=== PATIENT | female | born 1970 | race Caucasian/White ===

== ENCOUNTER 2020-02-14 02:35 | Observation (INO) | payer OTHER ==
[2020-02-14] MEDS ORDERED: HYDROmorphone 0.5 MG/0.5 ML SYRINGE IVP STA ×2 (04:21→05:40)
[2020-02-14 04:56] LABS: Basophils # (A) 0.1 k/uL (0-0.2); Basophils % (A) 1 %; Eosinophils # (A) 0.2 k/uL (0-0.7); Eosinophils % (A) 3 %; HCT 42.2 % (34.0-46.0); HGB 13.7 gm/dL (11.4-16.0); Lymphocytes % (A) 32 %; MCHC 32.6 g/dL (31.0-37.0); Mean Platelet Volume 9.2; Monocytes # (A) 0.5 k/uL (0-1.0); Monocytes % (A) 8 %; Neutrophils # (A) 3.5 k/uL (1.3-7.7); Neutrophils % (A) 54 %; Platelet Count 183 k/uL (150-450); RBC 4.91 m/uL (3.80-5.40); RDW 13.7 % (11.5-15.5); WBC 6.4 k/uL (3.8-10.6)
[2020-02-14 05:13] LABS: ALT 12 U/L (4-34); AST 18 U/L (14-36); African American GFR (CKD) >90 (>60 ml/min/1.73 sqM); Albumin 4.1 g/dL (3.5-5.0); Alkaline Phosphatase 85 U/L (38-126); Anion Gap 6 mmol/L; Blood Urea Nitrogen 12 mg/dL (7-17); Calcium 9.3 mg/dL (8.4-10.2); Carbon Dioxide 26 mmol/L (22-30); Chloride 108 mmol/L (98-107); Glucose 96 mg/dL (74-99); Non-African American GFR(CKD) >90 (>60 ml/min/1.73 sqM); Potassium 3.9 mmol/L (3.5-5.1); Sodium 140 mmol/L (137-145); Total Bilirubin 0.5 mg/dL (0.2-1.3); Total Protein 6.6 g/dL (6.3-8.2)
--- NOTE | 2020-02-14 05:23 | CT ---
EXAMINATION TYPE: CT lumbar spine w con DATE OF EXAM: 02/14/2020 COMPARISON: None HISTORY: Lower back pain CT DLP: 1888.6 mGycm Automated exposure control for dose reduction was used. CONTRAST: Performed with IV Contrast, patient injected with 100 mL of Isovue 300. The lumbar vertebra have normal spacing and alignment. Posterior elements are intact. Facet joints ap pear normal. Abdominal aorta is atheromatous. There is no lumbar paraspinal mass. There is no lynette lashanda fracture. The sacroiliac joints appear intact. Sacrum and coccyx appear normal. There are bilateral enlarged multiple inguinal lymph nodes. The largest is on the right side and kajal ures 5 cm in greatest dimension. There is asymmetric size of the obturator internus muscles which could relate to Infiltrative process or hemorrhage of the right side muscle. There is no pathologic enhancement in the lumbar spine. IMPRESSION: Normal lumbar spine exam. Extensive bilateral inguinal lymphadenopathy. There appears to be a mass involving the right obturator internus muscle which could relate to tumor or hemorrhage.
[2020-02-14] MEDS ORDERED: methylPREDNISolone SOD SUCCI 125 MG/2 ML VIAL IV STA (05:40)
[2020-02-14] MEDS ORDERED: NALOXONE 0.4 MG/ML 1 ML VIAL IV PRN (05:43)
[2020-02-14] MEDS ORDERED: MAG HYDROX/AL HYDROX/SIMETH 30 ML CUP PO PRN (05:43)
[2020-02-14] MEDS ORDERED: ACETAMINOPHEN TAB 325 MG TAB PO PRN (05:43)
[2020-02-14] MEDS ORDERED: MAGNESIUM HYDROXIDE 2,400 MG/10 ML CUP PO PRN (05:43)
[2020-02-14] MEDS ORDERED: HYDROcodone/APAP 5-325MG 1 EACH TAB PO PRN (05:43)
--- NOTE | 2020-02-14 05:58 | ED ---
Back Pain HPI - General Chief Complaint: Back Pain/Injury Stated Complaint: Rt leg pain, lump in groin Time Seen by Provider: 02/14/20 04:04 Source: patient Limitations: no limitations - History of Present Illness Initial Comments: This patient is a 50-year-old woman who presents with complaint of pain from the low back on the right side radiating to her buttocks, thigh and down toward her right foot. The patient states that this pain had been going on for number weeks and has been getting progressively worse. She states that tonight the pain is become unbearable, she cannot find a comfortable position a longer and she cannot sleep. Initially pain was made worse with sitting upright on it. She states that she did have some leftover [place] that she tried and this was not giving any relief. The patient denies any change in bladder or bowel function. No saddle anesthesia. She does not recall any trauma. The patient does relate she has history of lymphoma and has noticed that she has had increase in the lymph nodes of the groin bilaterally and also the right neck. MD Complaint: back pain -: week(s) Similar Symptoms Previously: No Place: home Radiation: buttocks, right leg Severity: severe Quality: burning, aching Consistency: constant Improves With: none Worsens With: sitting upright Associated Symptoms: denies other symptoms - Related Data Allergies Allergy/AdvReac Type Severity Reaction Status Date / Time No Known Allergies Allergy Verified 02/14/20 02:52 Review of Systems ROS Statement: Those systems with pertinent positive or pertinent negative responses have been documented in the HPI. ROS Other: All systems not noted in ROS Statement are negative. Constitutional: Denies: fever, chills, weakness Respiratory: Denies: cough, dyspnea Cardiovascular: Denies: chest pain, palpitations, edema, syncope Gastrointestinal: Denies: abdominal pain, vomiting, diarrhea Genitourinary: Denies: dysuria, frequency, hematuria Musculoskeletal: Reports: as per HPI, back pain. Denies: joint swelling, arthralgia Skin: Denies: rash Neurological: Denies: headache, weakness, numbness Past Medical History Additional Past Medical History / Comment(s): Thyroid Cancer, Collapsed lung History of Any Multi-Drug Resistant Organisms: None Reported Additional Past Surgical History / Comment(s): Breast Implants, Thyroidectomy Past Psychological History: No Psychological Hx Reported Smoking Status: Current every day smoker Past Alcohol Use History: None Reported Past Drug Use History: Marijuana General Exam Limitations: no limitations General appearance: alert, in no apparent distress Head exam: Present: atraumatic, normocephalic Eye exam: Present: normal appearance. Absent: scleral icterus, conjunctival injection Respiratory exam: Present: normal lung sounds bilaterally. Absent: respiratory distress, wheezes, rales, rhonchi, stridor Cardiovascular Exam: Present: regular rate, normal rhythm, normal heart sounds. Absent: systolic murmur, diastolic murmur, rubs, gallop GI/Abdominal exam: Present: soft, other (There are bilateral inguinal nodes.). Absent: distended, tenderness, guarding, rebound Extremities exam: Present: normal capillary refill. Absent: pedal edema, calf tenderness Back exam: Present: normal inspection. Absent: CVA tenderness (R), CVA tenderness (L) Neurological exam: Present: alert. Absent: motor sensory deficit Skin exam: Present: warm, dry, intact, normal color. Absent: rash Course Vital Signs 02/14/20 02/14/20 02:42 05:00 Temperature 97.9 F 98.0 F Pulse Rate 81 58 L Respiratory 16 18 Rate Blood Pressure 145/79 145/81 O2 Sat by Pulse 98 98 Oximetry Medical Decision Making - Medical Decision Making This patient is a 50-year-old woman with history of lymphoma. She did have initial surgery related to a right neck mass, but no adjuvant therapy. She states that she lost confidence in the initial oncology team and then also with the cancer treatment center that she had followed with. Over the past few weeks she has developed symptoms consistent with sciatic pain into the right leg. Imaging is ordered given her malignancy history and there is what appears to be either hemorrhage or infiltration of the right obturator internus. Given this will admit for additional symptom control and also for oncology consultation - Lab Data Result diagrams: 02/14/20 04:41 02/14/20 04:41 Lab Results 02/14/20 02/14/20 Range/Units 04:41 04:41 WBC 6.4 (3.8-10.6) k/uL RBC 4.91 (3.80-5.40) m/uL Hgb 13.7 (11.4-16.0) gm/dL Hct 42.2 (34.0-46.0) % MCV 86.0 (80.0-100.0) fL MCH 28.0 (25.0-35.0) pg MCHC 32.6 (31.0-37.0) g/dL RDW 13.7 (11.5-15.5) % Plt Count 183 (150-450) k/uL Neutrophils % 54 % Lymphocytes % 32 % Monocytes % 8 % Eosinophils % 3 % Basophils % 1 % Neutrophils # 3.5 (1.3-7.7) k/uL Lymphocytes # 2.0 (1.0-4.8) k/uL Monocytes # 0.5 (0-1.0) k/uL Eosinophils # 0.2 (0-0.7) k/uL Basophils # 0.1 (0-0.2) k/uL Sodium 140 (137-145) mmol/L Potassium 3.9 (3.5-5.1) mmol/L Chloride 108 H (98-107) mmol/L Carbon Dioxide 26 (22-30) mmol/L Anion Gap 6 mmol/L BUN 12 (7-17) mg/dL Creatinine 0.74 (0.52-1.04) mg/dL Est GFR (CKD-EPI)AfAm >90 (>60 ml/min/1.73 sqM) Est GFR (CKD-EPI)NonAf >90 (>60 ml/min/1.73 sqM) Glucose 96 (74-99) mg/dL Calcium 9.3 (8.4-10.2) mg/dL Total Bilirubin 0.5 (0.2-1.3) mg/dL AST 18 (14-36) U/L ALT 12 (4-34) U/L Alkaline Phosphatase 85 (38-126) U/L Total Protein 6.6 (6.3-8.2) g/dL Albumin 4.1 (3.5-5.0) g/dL Disposition Clinical Impression: Sciatica, Intractable back pain, Lymphoma Narrative: Right obturator internus hemorrhage versus mass Disposition: ADMITTED IP TO THIS HOSP Condition: Fair Is patient prescribed a controlled substance at d/c from ED?: No
[2020-02-14] MEDS: SODIUM CHLORIDE 0.9% 1,000 ML IV SCH (06:07)
[2020-02-14] MEDS: HYDROmorphone 1 MG/ML 1 ML SYRINGE IVP PRN ×4 (07:48→22:15)
[2020-02-14] MEDS: FAMOTIDINE 20 MG TAB PO SCH ×2 (07:48→21:38)
[2020-02-14] MEDS ORDERED: IOPAMIDOL CONTRAST (ORAL USE) VIAL PO PRN (11:03)
--- NOTE | 2020-02-14 11:18 | P.CONS ---
History of Present Illness - Reason for Consult Consult date: 02/14/20 Metastatic cancer likely thyroid - History of Present Illness The patient is a 50-year-old white female with a complicated past oncologic history. She states that in the fall of 2015 she was diagnosed with thyroid cancer and had total thyroidectomy with lymph node dissection at [facility] with Dr. Amador. According to the patient's multiple lymph nodes were involved. She does not recall the exact type of thyroid cancer but states that she was told that it was the "good one". The patient states that she had several complications after surgery, including weakness of the right sternomastoid and loss of sensation in that area, as well as marked fatigue with slow recovery. It appears that she received radioactive iodine several months later, in 2019. The patient states that about 6 months after that she was told that it looked like there was a lymph node enlargement in the mediastinum. At this time she was frustrated with her situation and decided to transfer her care to the cancer treatment centers [facility] in [place]. She states that she was therefore several days and was supposed to have a lymph node biopsy but that was canceled on the day of surgery because of some technical issues. He states that at this time she became quite frustrated and decided not to pursue any cancer care. She did continue thyroid supplementation with her family care physician. About 6 months ago she noted a hard nodule in the right lower neck which is otherwise asymptomatic. She did not seek attention for the same. However about 1-1/2 months ago she developed a softball size swelling in the right groin, and also noted another nodule in the right submental region. The right groin swelling was more painful but then spontaneously improved. She again did not seek attention for the same. About a week and half ago she developed pain in the right lower buttock area radiating down the right leg. Around this time she noted swelling again in the right groin, as well as a smaller lump in the left groin. The pain in the right buttock area continued to progress and become significantly symptomatic. She states that this was markedly increased by sitting down or trying to bear weight. She therefore came into the emergency room and was admitted for further management. The patient had a lumbar spine CT that did not show any significant abnormality in the osseous structures. However a 5 cm mass was seen in the pelvis impacting on the obturator internus muscle. Consult was placed for further evaluation and recommendations Review of Systems Constitutional: Reports fatigue Eyes: denies blurred vision, denies pain Ears: deny: decreased hearing, ear discharge, earache, tinnitus Ears, nose, mouth and throat: Reports as per HPI (Weakness right sternomastoid as well as loss of sensation in the right lower neck and right supraclavicular area), Reports neck lump Cardiovascular: Denies chest pain, Denies shortness of breath Respiratory: Denies cough Gastrointestinal: Denies abdominal pain, Denies diarrhea, Denies nausea, Denies vomiting Genitourinary: Denies dysuria, Denies hematuria Musculoskeletal: Reports muscle weakness, Reports neck stiffness, Denies myalgias Musculoskeletal: right: hip pain Integumentary: Denies pruritus, Denies rash Neurological: Reports paresthesias, Denies numbness, Denies weakness Psychiatric: Reports as per HPI Endocrine: Reports as per HPI, Reports fatigue, Reports weight change Hematologic/Lymphatic: Reports as per HPI, Reports lymphadenopathy Past Medical History Additional Past Medical History / Comment(s): Thyroid Cancer, Collapsed lung History of Any Multi-Drug Resistant Organisms: None Reported Additional Past Surgical History / Comment(s): Breast Implants, Thyroidectomy Past Psychological History: No Psychological Hx Reported Smoking Status: Current every day smoker Past Alcohol Use History: None Reported Past Drug Use History: Marijuana Medications and Allergies Home Medications Medication Instructions Recorded Confirmed Type ALPRAZolam [Xanax] 1 mg PO TID PRN 02/14/20 02/14/20 History Dextroamphetamine/Amphetamine 30 mg PO BID 02/14/20 02/14/20 History [Adderall] Ibuprofen [Motrin] 800 mg PO BID PRN 02/14/20 02/14/20 History Levothyroxine Sodium [Synthroid] 175 mcg PO DAILY 02/14/20 02/14/20 History Multivitamins, Thera [Multivitamin 1 tab PO DAILY 02/14/20 02/14/20 History (formulary)] Omeprazole 20 mg PO DAILY 02/14/20 02/14/20 History Vit C/E/Zn/Coppr/Lutein/Zeaxan 1 cap PO DAILY 02/14/20 02/14/20 History [Preservision Areds 2 Softgel] tiZANidine [Zanaflex] 4 mg PO BID PRN 02/14/20 02/14/20 History Allergies Allergy/AdvReac Type Severity Reaction Status Date / Time No Known Allergies Allergy Verified 02/14/20 08:52 Physical Exam Vitals: Vital Signs Temp Pulse Pulse Resp BP BP BP 02/14/20 07:50 98.5 F 73 131/64 02/14/20 06:48 52 L 17 02/14/20 06:00 98.3 F 78 16 135/70 02/14/20 05:53 98 F 52 L 18 131/76 02/14/20 05:00 98.0 F 58 L 18 145/81 02/14/20 02:42 97.9 F 81 16 145/79 Pulse Ox 02/14/20 07:50 97 02/14/20 06:48 02/14/20 06:00 97 02/14/20 05:53 100 02/14/20 05:00 98 02/14/20 02:42 98 Intake and Output 02/13/20 02/14/20 02/14/20 22:59 06:59 14:59 Intake Total 20 Balance 20 Intake: Intake, IV Titration 20 Amount Sodium Chloride 0.9% 1, 20 000 ml @ 20 mls/hr IV . Q24H [facility] Rx#:[id number] Other: Voiding Method Toilet Toilet # Voids 1 Weight 80.195 kg - Constitutional General appearance: no acute distress - EENT Eyes: EOMI, PERRLA ENT: hearing grossly normal, normal oropharynx - Neck Neck: no lymphadenopathy (1 cm firm right lower cervical node, with an adjacent 2-3 smaller shotty nodes. 7-8 mm right submental node) Thyroid: negative: normal size (Scar of thyroidectomy noted) - Respiratory Respiratory: bilateral: CTA - Cardiovascular Rhythm: regular Heart sounds: normal: S1, S2 - Gastrointestinal General gastrointestinal: normal bowel sounds, soft - Integumentary Integumentary: normal - Neurologic Neurologic: focal deficits (Weakness right sternomastoid) - Musculoskeletal Musculoskeletal: generalized weakness, strength equal bilaterally - Psychiatric Psychiatric: A&O x's 3, appropriate affect Right inguinal mass about 2-3 cm, firm and fixed. 2 cm left inguinal mass slightly softer, also fixed Results CBC & Chem 7: 02/14/20 04:41 02/14/20 04:41 Labs: Abnormal Lab Results - Last 24 Hours (Table) 02/14/20 Range/Units 04:41 Chloride 108 H (98-107) mmol/L Comments: CT lumbar spine reviewed Assessment and Plan (1) Thyroid cancer Narrative/Plan: The patient has a prior history of thyroid cancer with narrative as noted in the HPI. Original pathology reports are not available as to be able to determine the exact type. The patient appears to have had a history of recurrent disease but did not pursue further diagnostics and treatment after 2018. She now appears to be having progressive lymphadenopathy in the cervical and inguinal regions, as well as a mass noted in the posterior pelvis. Given her prior history recurrence of progression appears to be most likely, of her thyroid cancer. However other primaries are not ruled out. - The above was discussed in detail with her. The patient will need a biopsy to establish diagnosis, as well as for biomarker testing as appropriate - Check CT chest abdomen and pelvis for further staging - Consult general surgery for inguinal node biopsy - Thyroglobulin levels will be ordered - We will also attempt to obtain pathology and other reports from [facility] Current Visit: Yes Status: Acute Code(s): C73 - MALIGNANT NEOPLASM OF THYROID GLAND SNOMED Code(s): 143435823 (2) Intractable back pain Narrative/Plan: The patient's pain is actually most prominent in the right lower buttock area radiating down the right leg. This is due to the 5 cm plus mass noted impacting on the obturator internus muscle most likely. The patient was started on gabapentin. She is currently on IV Dilaudid. Continue to monitor with additional changes as needed - Consult radiation oncology for consideration of palliative radiation to the right pelvic mass - Add fentanyl low-dose for long-acting pain control Current Visit: Yes Status: Acute Code(s): M54.9 - DORSALGIA, UNSPECIFIED SNOMED Code(s): 959387844
[2020-02-14] MEDS: GABAPENTIN 100 MG CAP PO SCH ×2 (11:22→21:39)
[2020-02-14] MEDS ORDERED: ALPRAZolam 1 MG TAB PO PRN (13:23)
[2020-02-14] MEDS ORDERED: tiZANidine 4 MG TAB PO PRN (13:23)
--- NOTE | 2020-02-14 15:03 | P.HPIM ---
History of Present Illness H&P Date: 02/14/20 Chief Complaint: Back pain/right leg pain/lumbar in groin 50-year-old woman who presents with complaint of pain from the low back on the right side radiating to her buttocks, thigh and down toward her right foot. The patient states that this pain had been going on for number weeks and has been getting progressively worse. She states that tonight the pain is become unbeara ble, she cannot find a comfortable position a longer and she cannot sleep. Initially pain was made worse with sitting upright on it. She states that she did have some leftover [place] that she tried and this was not giving any relief. The patient denies any change in bladder or bowel function. No saddle anesthesia. She does not recall any trauma. The patient does relate she has history of lymphoma and has noticed that she has had increase in the lymph nodes of the groin bilaterally and also the right neck. Patient has history of lymphoma. She did have initial surgery related to a right neck mass, but no adjuvant therapy. She states that she lost confidence in the initial oncology team and then also with the cancer treatment center that she had followed with. Over the past few weeks she has developed symptoms consistent with sciatic pain into the right leg. CT was ordered given her malignancy history and there is what appears to be either hemorrhage or infiltration of the right obturator internus. Patient is admitted for additional symptom control and also for oncology consultation Review of Systems REVIEW OF SYSTEMS: CONSTITUTIONAL: No fever, no malaise, no fatigue. HEENT: No recent visual problems or hearing problems. Denied any sore throat. CARDIOVASCULAR: No chest pain, orthopnea, PND, no palpitations, no syncope. PULMONARY: No shortness of breath, no cough, no hemoptysis. GASTROINTESTINAL: No diarrhea, no nausea, no vomiting, no abdominal pain. NEUROLOGICAL: No headaches, no weakness, no numbness. HEMATOLOGICAL: Denies any bleeding or petechiae. GENITOURINARY: Denies any burning micturition, frequency, or urgency. MUSCULOSKELETAL/RHEUMATOLOGICAL: As per HPI. ENDOCRINE: Denies any polyuria or polydipsia. The rest of the 14-point review of systems is negative. Past Medical History Additional Past Medical History / Comment(s): Thyroid Cancer, Collapsed lung History of Any Multi-Drug Resistant Organisms: None Reported Additional Past Surgical History / Comment(s): Breast Implants, Thyroidectomy Past Psychological History: No Psychological Hx Reported Smoking Status: Current every day smoker Past Alcohol Use History: None Reported Past Drug Use History: Marijuana Medications and Allergies Home Medications Medication Instructions Recorded Confirmed Type ALPRAZolam [Xanax] 1 mg PO TID PRN 02/14/20 02/14/20 History Dextroamphetamine/Amphetamine 30 mg PO BID 02/14/20 02/14/20 History [Adderall] Ibuprofen [Motrin] 800 mg PO BID PRN 02/14/20 02/14/20 History Levothyroxine Sodium [Synthroid] 175 mcg PO DAILY 02/14/20 02/14/20 History Multivitamins, Thera [Multivitamin 1 tab PO DAILY 02/14/20 02/14/20 History (formulary)] Omeprazole 20 mg PO DAILY 02/14/20 02/14/20 History Vit C/E/Zn/Coppr/Lutein/Zeaxan 1 cap PO DAILY 02/14/20 02/14/20 History [Preservision Areds 2 Softgel] tiZANidine [Zanaflex] 4 mg PO BID PRN 02/14/20 02/14/20 History Allergies Allergy/AdvReac Type Severity Reaction Status Date / Time No Known Allergies Allergy Verified 02/14/20 08:52 Physical Exam Vitals: Vital Signs Temp Pulse Pulse Resp BP BP BP 02/14/20 07:50 98.5 F 73 131/64 02/14/20 06:48 52 L 17 02/14/20 06:00 98.3 F 78 16 135/70 02/14/20 05:53 98 F 52 L 18 131/76 02/14/20 05:00 98.0 F 58 L 18 145/81 02/14/20 02:42 97.9 F 81 16 145/79 Pulse Ox 02/14/20 07:50 97 02/14/20 06:48 02/14/20 06:00 97 02/14/20 05:53 100 02/14/20 05:00 98 02/14/20 02:42 98 Intake and Output 02/13/20 02/14/20 02/14/20 22:59 06:59 14:59 Intake Total 20 Balance 20 Intake: Intake, IV Titration 20 Amount Sodium Chloride 0.9% 1, 20 000 ml @ 20 mls/hr IV . Q24H [facility] Rx#:[id number] Other: Voiding Method Toilet Toilet # Voids 1 Weight 80.195 kg General appearance: alert, in no apparent distress Head exam: Present: atraumatic, normocephalic Eye exam: Present: normal appearance. Absent: scleral icterus, conjunctival injection Respiratory exam: Present: normal lung sounds bilaterally. Absent: respiratory distress, wheezes, rales, rhonchi, stridor Cardiovascular Exam: Present: regular rate, normal rhythm, normal heart sounds. Absent: systolic murmur, diastolic murmur, rubs, gallop GI/Abdominal exam: Present: soft, other (There are bilateral inguinal nodes.). Absent: distended, tenderness, guarding, rebound Extremities exam: Present: normal capillary refill. Absent: pedal edema, calf tenderness Back exam: Present: normal inspection. Absent: CVA tenderness (R), CVA tenderness (L) Neurological exam: Present: alert. Absent: motor sensory deficit Skin exam: Present: warm, dry, intact, normal color. Absent: rash Results CBC & Chem 7: 02/14/20 04:41 02/14/20 04:41 Labs: Abnormal Lab Results - Last 24 Hours (Table) 02/14/20 Range/Units 04:41 Chloride 108 H (98-107) mmol/L Thrombosis Risk Factor Assmnt - Choose All That Apply Any of the Below Risk Factors Present?: Yes Each Factor Represents 1 point: Age 41-60 years, Obesity (BMI >25) Other Risk Factors: No Other congenital or acquired thrombophilia - If yes, enter type in comment: No Thrombosis Risk Factor Assessment Total Risk Factor Score: 2 Thrombosis Risk Factor Assessment Level: Low Risk Assessment and Plan Assessment: 1. Right obturator internus hemorrhage versus mass; patient seems to have progressive lymphadenopathy in cervical and inguinal region; oncology recommending CT of the chest abdomen and pelvis for further staging; consult general surgery for inguinal lymph node biopsy 2. Intractable back pain; secondary to mass infiltrating obturator internus muscle; pain medications that adjusted; patient remains on IV Dilaudid and gabapentin - Oncology recommending radiation oncology consultation for palliative radiation to right pelvic mass 3. Sciatica versus pain from infiltrating pelvic mass; pain control as indicated above 4. History of thyroid cancer; possible recurrence/progression of thyroid cancer; oncology recommending obtaining original pathology reports to be able to determine exact type of thyroid cancer DVT prophylaxis; SCDs/heparin CODE STATUS; full code
[2020-02-14] MEDS: HEPARIN SODIUM,PORCINE 5,000 UNIT/ML 1 ML VIAL SQ SCH (21:39)
[2020-02-14] MEDS: NON FORMULARY DRUG (Dextroamphetamine/Amphetamine [Adderall] 30 MG Tablet) PO SCH (21:40)
[2020-02-15] MEDS: SODIUM CHLORIDE 0.9% 1,000 ML IV SCH (04:36)
[2020-02-15] MEDS ORDERED: LEVOTHYROXINE SODIUM 100 MCG, LEVOTHYROXINE SODIUM 75 MCG PO SCH ×2 (06:30)
[2020-02-15] MEDS ORDERED: PANTOPRAZOLE 40 MG TABLET PO SCH (07:30)
[2020-02-15 07:55] VITALS: PULSE 75
[2020-02-15] MEDS: HYDROmorphone 1 MG/ML 1 ML SYRINGE IVP PRN (08:53)
[2020-02-15] MEDS: FAMOTIDINE 20 MG TAB PO SCH (08:54)
[2020-02-15] MEDS: HEPARIN SODIUM,PORCINE 5,000 UNIT/ML 1 ML VIAL SQ SCH (08:54)
[2020-02-15] MEDS: GABAPENTIN 100 MG CAP PO SCH (08:54)
[2020-02-15] MEDS: NON FORMULARY DRUG (Dextroamphetamine/Amphetamine [Adderall] 30 MG Tablet) PO SCH (08:54)
[2020-02-15] MEDS ORDERED: MULTIVITAMINS, THERA 1 EACH TAB PO SCH (09:00)
[2020-02-15] MEDS ORDERED: NON FORMULARY DRUG (Levothyroxine Sodium [Synthroid] 175 MCG Tablet) PO SCH (09:00)
[2020-02-15 09:30] LABS: African American GFR (CKD) >90 (>60 ml/min/1.73 sqM); Anion Gap 5 mmol/L; Blood Urea Nitrogen 17 mg/dL (7-17); Calcium 9.1 mg/dL (8.4-10.2); Carbon Dioxide 26 mmol/L (22-30); Chloride 109 mmol/L (98-107); Glucose 91 mg/dL (74-99); Non-African American GFR(CKD) >90 (>60 ml/min/1.73 sqM); Potassium 4.7 mmol/L (3.5-5.1); Sodium 140 mmol/L (137-145)
--- NOTE | 2020-02-15 11:59 | CT ---
EXAMINATION TYPE: CT ChestAbdPelvis w con DATE OF EXAM: 02/15/2020 COMPARISON: None HISTORY: Metastatic thryoid cancer CT DLP: 1211.8 mGycm CONTRAST: CT scan of the chest, abdomen and pelvis is performed with Oral Contrast and with IV Contrast, patien t injected with 100 ml mL of Isovue 300. CT Chest: LUNGS: The lungs are clear and free of infiltrate or atelectasis. No pulmonary nodule or mass is det ected. No pleural effusion or CT evidence of interstitial lung disease. Upper lobe emphysematous jonny nges identified. MEDIASTINUM: Thoracic aorta is of normal caliber. The heart is not enlarged. High right paratrachea l soft tissue mass identified measuring approximately 6.4 x 3.6 cm may reflect adenopathy. No additio nal mediastinal mass is identified at this time. HILAR STRUCTURES: No evidence for mass. No hilar adenopathy is appreciated. OTHER: There is a 1 cm left breast mass. Correlate with mammography and ultrasound. Post surgical jonny nges of total thyroidectomy. CONTRAST CT ABDOMEN AND PELVIS FINDINGS: LIVER/GB: No calcified gallstones. No space occupying hepatic lesion. Biliary tree is of normal ca liber. PANCREAS: No inflammation. No distinct mass. SPLEEN: No splenic enlargement. No lesion seen. ADRENALS: No nodule. No thickening. KIDNEYS/BLADDER: No hydronephrosis. No nephrolithiasis. No disctinct renal mass. BOWEL: Normal appendix. Normal bowel caliber. No inflammation. GENITAL ORGANS: No gross abnormality. LYMPH NODES: Bilateral inguinal adenopathy identified measuring approximately 4.4 cm on the right and 2.5 cm on the left with an additional lymph node measuring 1.7 cm. AORTA: No significant abnormality . OSSEOUS STRUCTURES: There is a mass in the region of the obturator internus musculature possible infi ltration into the right hemisacrum. Metastatic disease is not excluded. OTHER: No significant additional abnormality is seen. IMPRESSION: 1. Soft tissue mass right paratracheal region as well as bilateral inguinal adenopathy. 2.There is a mass in the region of the obturator internus musculature possible infiltration into the right hemisacrum. Metastatic disease is not excluded.
--- NOTE | 2020-02-15 12:14 | P.GSCN ---
History of Present Illness Consult date: 02/15/20 Reason for Consult: Inguinal adenopathy History of present illness: 50-year-old female diagnosed in 2016 with thyroid cancer. Pathologic type unknown. Patient later was found to have some mediastinal adenopathy. He sought treatment at the cancer treatment center in [place]. Following that patient decided not to pursue further care. Lately he has had pain right groin going down into the leg. He has felt a nodule in the right side of her neck for the last 6 months or so. Mild soreness at times there as well. Bilateral groin swelling as well. Recent CAT scan performed showing bilateral inguinal adenopathy, mediastinal adenopathy, masslike area involving the obturator foramen. We were consulted to evaluate for possible biopsy. Review of Systems The patient denies any acute changes in vision or hearing, no dysphagia or odynophagia, no chest pain or shortness of breath, no dysuria or hematuria, no headache, no runny nose, no rectal bleeding or melena, no unexplained weight loss Past Medical History Additional Past Medical History / Comment(s): Thyroid Cancer, Collapsed lung History of Any Multi-Drug Resistant Organisms: None Reported Additional Past Surgical History / Comment(s): Breast Implants, Thyroidectomy Past Psychological History: No Psychological Hx Reported Smoking Status: Current every day smoker Past Alcohol Use History: None Reported Past Drug Use History: Marijuana Medications and Allergies Home Medications Medication Instructions Recorded Confirmed Type ALPRAZolam [Xanax] 1 mg PO TID PRN 02/14/20 02/14/20 History Dextroamphetamine/Amphetamine 30 mg PO BID 02/14/20 02/14/20 History [Adderall] Ibuprofen [Motrin] 800 mg PO BID PRN 02/14/20 02/14/20 History Levothyroxine Sodium [Synthroid] 175 mcg PO DAILY 02/14/20 02/14/20 History Multivitamins, Thera [Multivitamin 1 tab PO DAILY 02/14/20 02/14/20 History (formulary)] Omeprazole 20 mg PO DAILY 02/14/20 02/14/20 History Vit C/E/Zn/Coppr/Lutein/Zeaxan 1 cap PO DAILY 02/14/20 02/14/20 History [Preservision Areds 2 Softgel] tiZANidine [Zanaflex] 4 mg PO BID PRN 02/14/20 02/14/20 History Allergies Allergy/AdvReac Type Severity Reaction Status Date / Time No Known Allergies Allergy Verified 02/14/20 08:52 Surgical - Exam Vital Signs Temp Pulse Resp BP Pulse Ox 97.9 F 81 16 145/79 98 02/14/20 02:42 02/14/20 02:42 02/14/20 02:42 02/14/20 02:42 02/14/20 02:42 Physical exam: General: Well-developed, well-nourished HEENT: Normocephalic, sclerae nonicteric, right cervical adenopathy Abdomen: Nontender, nondistended Extremities: No edema, bilateral inguinal adenopathy right greater than left Neuro: Alert and oriented Results - Labs 02/14/20 04:41 02/15/20 08:25 Abnormal Lab Results - Last 24 Hours (Table) 02/14/20 02/15/20 Range/Units 04:41 08:25 Chloride 109 H (98-107) mmol/L Thyroglobulin <0.20 L (1.60-59.90) ng/mL Diabetes panel 02/15/20 Range/Units 08:25 Sodium 140 (137-145) mmol/L Potassium 4.7 (3.5-5.1) mmol/L Chloride 109 H (98-107) mmol/L Carbon Dioxide 26 (22-30) mmol/L BUN 17 (7-17) mg/dL Creatinine 0.70 (0.52-1.04) mg/dL Glucose 91 (74-99) mg/dL Calcium 9.1 (8.4-10.2) mg/dL Calcium panel 02/15/20 Range/Units 08:25 Calcium 9.1 (8.4-10.2) mg/dL Pituitary panel 02/15/20 Range/Units 08:25 Sodium 140 (137-145) mmol/L Potassium 4.7 (3.5-5.1) mmol/L Chloride 109 H (98-107) mmol/L Carbon Dioxide 26 (22-30) mmol/L BUN 17 (7-17) mg/dL Creatinine 0.70 (0.52-1.04) mg/dL Glucose 91 (74-99) mg/dL Calcium 9.1 (8.4-10.2) mg/dL Adrenal panel 02/15/20 Range/Units 08:25 Sodium 140 (137-145) mmol/L Potassium 4.7 (3.5-5.1) mmol/L Chloride 109 H (98-107) mmol/L Carbon Dioxide 26 (22-30) mmol/L BUN 17 (7-17) mg/dL Creatinine 0.70 (0.52-1.04) mg/dL Glucose 91 (74-99) mg/dL Calcium 9.1 (8.4-10.2) mg/dL Assessment and Plan (1) Inguinal adenopathy Narrative/Plan: 50-year-old female with adenopathy. Recurrent thyroid cancer certainly most likely etiology at this time. Options of open versus percutaneous biopsy reviewed with the patient and also with Dr. Oliveira. We'll schedule for ultrasound-guided core biopsy right inguinal lymph node. Patient states she has not able to stay in the hospital longer in need to have this performed electively as an outpatient. We'll try to arrange. Current Visit: Yes Status: Acute Code(s): R59.0 - LOCALIZED ENLARGED LYMPH NODES SNOMED Code(s): 222151684
[2020-02-15 15:06] VITALS: BP 117/69; RESP 18; TEMP 98.2
--- NOTE | 2020-02-15 22:49 | P.PN ---
Subjective Progress Note Date: 02/15/20 Principal diagnosis: Concern for metastatic cancer Surgery was consulted for inguinal biopsy, large palpable. Would prefer tissue biopsy prior to discharge so no further delays as she has been non-compliant to this point in follow-up with outside hospital systems. Thyroglobulin level is less than 20 Objective - Vital Signs Vital signs: Vital Signs Temp 98 F 02/15/20 07:54 Pulse 75 02/15/20 09:00 Resp 16 02/15/20 09:00 BP 134/80 02/15/20 07:54 Pulse Ox 98 02/15/20 07:54 Intake & Output 02/14/20 02/15/20 02/15/20 18:59 06:59 18:59 Intake Total 944 640 Balance 944 640 Intake: Intake, IV Titration 320 Amount Sodium Chloride 0.9% 1, 320 000 ml @ 20 mls/hr IV . Q24H [facility] Rx#:[id number] Oral 944 320 Other: Voiding Method Toilet Toilet Toilet # Voids 2 1 1 - Exam - Constitutional General appearance: no acute distress - EENT Eyes: EOMI, PERRLA ENT: hearing grossly normal, normal oropharynx - Neck Neck: no lymphadenopathy (1 cm firm right lower cervical node, with an adjacent 2-3 smaller shotty nodes. 7-8 mm right submental node) Thyroid: negative: normal size (Scar of thyroidectomy noted) - Respiratory Respiratory: bilateral: CTA - Cardiovascular Rhythm: regular Heart sounds: normal: S1, S2 - Gastrointestinal General gastrointestinal: normal bowel sounds, soft - Integumentary Integumentary: normal - Neurologic Neurologic: focal deficits (Weakness right sternomastoid) - Musculoskeletal Musculoskeletal: generalized weakness, strength equal bilaterally - Psychiatric Psychiatric: A&O x's 3, appropriate affect Right inguinal mass about 2-3 cm, firm and fixed. 2 cm left inguinal mass slightly softer, also fixed - Labs CBC & Chem 7: 02/14/20 04:41 02/15/20 08:25 Labs: Abnormal Lab Results - Last 24 Hours (Table) 02/14/20 02/15/20 Range/Units 04:41 08:25 Chloride 109 H (98-107) mmol/L Thyroglobulin <0.20 L (1.60-59.90) ng/mL Assessment and Plan Plan: CT lumbar spine reviewed Assessment and Plan Thyroid cancer - Apparent Diagnosis in Thyroid Cancer in 2018 and underwent radioactive iodine. - Original pathology reports are not available as to be able to determine the exact type. - The patient appears to have had a history of recurrent disease but did not pursue further diagnostics and treatment after 2018. - Now presenting with progressive lymphadenopathy in the cervical and inguinal regions, as well as a mass noted in the posterior pelvis. - Given her prior history recurrence of progression appears to be most likely, of her thyroid cancer. However other primaries are not ruled out. - The above was discussed in detail with her. The patient will need a biopsy to establish diagnosis, as well as for biomarker testing as appropriate - CT scans reviewed and paratrachael nodule also found on imaging in addition to palpable areas stated above - Consult general surgery for inguinal node biopsy, if unable to obtain IR to please obtain prior to discharge - Thyroglobulin levels will be ordered - We will also attempt to obtain pathology and other reports from [facility] Intractable back pain The patient's pain is actually most prominent in the right lower buttock area radiating down the right leg. This is due to the 5 cm plus mass noted impacting on the obturator internus muscle most likely. The patient was started on gabapentin. - Consult radiation oncology for consideration of palliative radiation to the right pelvic mass - Add fentanyl low-dose for long-acting pain control - WOuld prefer tissue biopsy prior to discharge for no further delays in treatment with her history of non-compliance to follow-up. Will discuss firther with surgery and/or Interventional radiology
--- NOTE | 2020-02-16 10:23 | P.CONS ---
History of Present Illness - Reason for Consult Consult date: 02/15/20 right lower back pain - radiates down leg Requesting physician: Agus Oliveira - Chief Complaint right low back pain - History of Present Illness The patient is a 50-year-old female with a history of a stage I (pT1a, pN1b, M0) papillary thyroid carcinoma treated with thyroidectomy with lymph node dissection in February 2016. She reports that this treatment was followed with radioactive iodine therapy. Back in 2016, the patient was noted to have suspicious lymph nodes in the paratracheal and epicardial region of the thorax. The patient underwent biopsy of the epicardial lymph node which revealed an atypical lymphoid infiltrate. This was felt to be suspicious for lymphoma, but before definitive diagnosis was made the patient decided to discontinue workup. She was evaluated at the cancer treatment centers of [facility], and subsequently left their care as well. She recently developed right lower extremity pain and groin swelling presenting to the ER. The patient reports an approximate 6 weeks ago she noticed an acute episode of right groin swelling. This seemed to happen overnight, and she had difficulty with right hip range of motion secondary to the lesion. She states that this subsided after a few days. She could still feel the swelling however. Approx imately a week and half ago the patient developed significant right-sided sciatic pain. She reports this starting posterior to the right hip and radiating down the right lower extremity. On her current pain regimen the pain is 4 out of 10, but prior to her admission the pain was much higher. She underwent a CT scan of the lumbar spine on February 13 revealing enlarged bilateral inguinal adenopathy up to 5 cm on the right, as well as a soft tissue mass at the right obturator internus worrisome for tumor versus hemorrhage. She also underwent a CT of the chest abdomen and pelvis the following day which showed a 6.4 x 3.6 cm right paratracheal mass, a 1 cm left breast mass, bilateral inguinal adenopathy measuring 4.4 cm on the right and 2.5 cm on the left as well as a previously described obturator internus mass with possible infiltration into the hemisacrum. The patient reports that despite her imaging in 2016 being worrisome for additional disease, she has not followed up as recommended. She is unhappy with the care she received a [facility], and complains of difficulty with right neck range of motion and chronic numbness/tingling of the right shoulder. She reports persistent fatigue. She states that her primary care physician has been largely managing her thyroid replacement medications. Review of Systems Constitutional: Denies chills, Denies fever Eyes: denies blurred vision Ears: deny: tinnitus Ears, nose, mouth and throat: Reports neck lump Cardiovascular: Denies chest pain Respiratory: Denies congestion, Denies cough Gastrointestinal: Denies abdominal pain Genitourinary: Denies flank pain Musculoskeletal: Reports low back pain Integumentary: Denies rash Neurological: Denies ataxia, Denies confusion Psychiatric: Reports anxiety Endocrine: Reports fatigue Past Medical History Additional Past Medical History / Comment(s): Thyroid Cancer, Collapsed lung History of Any Multi-Drug Resistant Organisms: None Reported Additional Past Surgical History / Comment(s): Breast Implants, Thyroidectomy Past Psychological History: No Psychological Hx Reported Smoking Status: Current every day smoker Past Alcohol Use History: None Reported Past Drug Use History: Marijuana Medications and Allergies Home Medications Medication Instructions Recorded Confirmed Type ALPRAZolam [Xanax] 1 mg PO TID PRN 02/14/20 02/14/20 History Dextroamphetamine/Amphetamine 30 mg PO BID 02/14/20 02/14/20 History [Adderall] Ibuprofen [Motrin] 800 mg PO BID PRN 02/14/20 02/14/20 History Levothyroxine Sodium [Synthroid] 175 mcg PO DAILY 02/14/20 02/14/20 History Multivitamins, Thera [Multivitamin 1 tab PO DAILY 02/14/20 02/14/20 History (formulary)] Omeprazole 20 mg PO DAILY 02/14/20 02/14/20 History Vit C/E/Zn/Coppr/Lutein/Zeaxan 1 cap PO DAILY 02/14/20 02/14/20 History [Preservision Areds 2 Softgel] tiZANidine [Zanaflex] 4 mg PO BID PRN 02/14/20 02/14/20 History Gabapentin [Neurontin] 200 mg PO BID #20 cap 02/15/20 Rx HYDROcodone/APAP 5-325MG [[place] 1 each PO Q4HR PRN #18 tab 02/15/20 Rx 5-325] fentaNYL 12MCG/HR PATCH [Duragesic 1 patch TRANSDERM Q72H #3 patch 02/15/20 Rx 12MCG/HR] Allergies Allergy/AdvReac Type Severity Reaction Status Date / Time No Known Allergies Allergy Verified 02/14/20 08:52 Physical Exam Vitals: Vital Signs Temp Pulse Resp BP Pulse Ox 02/15/20 15:00 98.2 F 62 18 117/69 97 Intake and Output 02/15/20 02/16/20 02/16/20 22:59 06:59 14:59 Other: Voiding Method Toilet # Voids 1 - Constitutional General appearance: no acute distress - EENT Eyes: EOMI, PERRLA ENT: NA/AT - Neck Neck: lymphadenopathy (right neck shotty adenopathy noted on palpation) - Respiratory Respiratory: bilateral: CTA - Cardiovascular Rhythm: regular - Gastrointestinal General gastrointestinal: no distended, no tenderness - Integumentary Integumentary: no pale, no rash - Neurologic Neurologic: CNII-XII intact - Musculoskeletal Musculoskeletal: gait normal, strength equal bilaterally - Psychiatric Psychiatric: A&O x's 3, appropriate affect Results CBC & Chem 7: 02/14/20 04:41 02/15/20 08:25 CT scan - abdomen: report reviewed, image reviewed CT scan - chest: report reviewed, image reviewed CT scan - pelvis: report reviewed, image reviewed Assessment and Plan Assessment: The patient is a 50-year-old female with a history of a stage I (pT1a, pN1b, M0) papillary thyroid carcinoma treated with thyroidectomy with lymph node dissection in February 2016. She reports that this treatment was followed with radioactive iodine therapy. Back in 2016, the patient was noted to have suspicious lymph nodes in the paratracheal and epicardial region of the thorax. The patient underwent biopsy of the epicardial lymph node which revealed an atypical lymphoid infiltrate. This was felt to be suspicious for lymphoma, but before definitive diagnosis was made the patient decided to discontinue workup. She was evaluated at the cancer treatment centers of [place], and subsequently left their care as well. She recently developed right lower extremity pain and groin swelling presenting to the ER. Plan: 1. Right sciatic pain: As detailed above, the patient has a soft tissue mass involving the right obturator internus that likely is compressing some of the sacral nerves. This is most likely the cause of her pain, and is concerning for recurrent malignancy. I discussed with the patient that he may be reasonable to perform a course of palliative radiotherapy to this lesion, but that we would first need a biopsy showing recurrent disease. As stated above, the patient has not had biopsy proof of any systemic recurrence from her papillary thyroid cancer. The patient does not wish to wait in the hospital for biopsy, as she needs to go home to take her mother to dialysis. Her pain seems improved on her current regimen, and she'll be discharged with 3 days worth of pain medication. We will arrange outpatient follow-up, as well as medical oncology. 2. Papillary thyroid cancer: As detailed above, the patient had concern on imaging back in 2017 that she may have recurrent papillary thyroid cancer. She had 2 areas in the mediastinum that were felt worrisome. On updated imaging, the right paratracheal lesion is much larger. There is small adenopathy in the epicardial region, but this is much less worrisome for progression. She'll be arranged for outpatient biopsy of the right inguinal lymph node. Back in 2017, there was some concern regarding B-cell lymphoma, but I feel that it is unlikely this would've been asymptomatic for this time period. Time with Patient: Greater than 30
--- NOTE | 2020-02-16 10:41 | P.DS ---
Providers Date of admission: 02/14/20 05:45 Expected date of discharge: 02/15/20 Attending physician: Darren Easton Consults: 02/14/20 05:44 Consult Physician Routine Consulting Provider: Agus Oliveira Consult Reason/Comments: Lymphoma patient Do you want consulting provider notified?: Yes 02/14/20 11:04 Consult Physician Routine Consulting Provider: Xavi Rojas Consult Reason/Comments: Rt inguinal L node biopsy Do you want consulting provider notified?: Yes 02/14/20 11:19 Consult Physician Routine Consulting Provider: Pedro Curtis Consult Reason/Comments: Evaluate for palliative radiation to right pelvic mass Do you want consulting provider notified?: Yes Primary care physician: Stated None Hospital Course: 50-year-old woman who presents with complaint of pain from the low back on the right side radiating to her buttocks, thigh and down toward her right foot. The patient states that this pain had been going on for number weeks and has been getting progressively worse. She states that tonight the pain is become unbearable, she cannot find a comfortable position a longer and she cannot sleep. Initially pain was made worse with sitting upright on it. She states that she did have some leftover [place] that she tried and this was not giving any relief. The patient denies any change in bladder or bowel function. No saddle anesthesia. She does not recall any trauma. The patient does relate she has history of lymphoma and has noticed that she has had increase in the lymph nodes of the groin bilaterally and also the right neck. Patient has history of lymphoma. She did have initial surgery related to a right neck mass, but no adjuvant therapy. She states that she lost confidence in the initial oncology team and then also with the cancer treatment center that she had followed with. Over the past few weeks she has developed symptoms consistent with sciatic pain into the right leg. CT was ordered given her malignancy history and there is what appears to be either hemorrhage or infiltration of the right obturator internus. Patient is admitted for additional symptom control and also for oncology consultation 02/15/2020 Patient's pain is better controlled on present regimen patient will be discharged on same regimen patient doesn't have a PCP patient will be referred to PCP a as an outpatient patient the appears to have significant lymphadenopathy appears to be from her thyroid cancer and patient will undergo biopsy of for one of the lymph nodes as an outpatient which will be taken care of by the oncologist. PHYSICAL EXAMINATION: GENERAL: The patient is alert and oriented x3, not in any acute distress. Well developed, well nourished. HEENT: Pupils are round and equally reacting to light. EOMI. No scleral icterus. No conjunctival pallor. Normocephalic, atraumatic. No pharyngeal erythema. No thyromegaly. CARDIOVASCULAR: S1 and S2 present. No murmurs, rubs, or gallops. PULMONARY: Chest is clear to auscultation, no wheezing or crackles. ABDOMEN: Soft, nontender, nondistended, normoactive bowel sounds. No palpable organomegaly. MUSCULOSKELETAL: No joint swelling or deformity. EXTREMITIES: No cyanosis, clubbing, or pedal edema. NEUROLOGICAL: Gross neurological examination did not reveal any focal deficits. SKIN: No rashes. - Back pain and a mass in the right obturator internus secondary to lymphaden opathy from cancer. Further management as mentioned above for rest of the medical problems and hospice physician course please refer to HPI from Patient Condition at Discharge: Fair Plan - Discharge Summary Discharge Rx Participant: No New Discharge Prescriptions: New fentaNYL 12MCG/HR PATCH [Durages[place] 12MCG/HR] 1 patch TRANSDERM Q72H #3 patch Gabapentin [Neurontin] 200 mg PO BID #20 cap HYDROcodone/APAP 5-325MG [[place] 5-325] 1 each PO Q4HR PRN #18 tab PRN Reason: Moderate Pain Continue Levothyroxine Sodium [Synthroid] 175 mcg PO DAILY tiZANidine [Zanaflex] 4 mg PO BID PRN PRN Reason: Pain Multivitamins, Thera [Multivitamin (formulary)] 1 tab PO DAILY Omeprazole 20 mg PO DAILY Ibuprofen [Motrin] 800 mg PO BID PRN PRN Reason: Pain Dextroamphetamine/Amphetamine [Adderall] 30 mg PO BID ALPRAZolam [Xanax] 1 mg PO TID PRN PRN Reason: Anxiety Vit C/E/Zn/Coppr/Lutein/Zeaxan [Preserv[place] Areds 2 Softgel] 1 cap PO DAILY Discharge Medication List ALPRAZolam [Xanax] 1 mg PO TID PRN 02/14/20 [History] Dextroamphetamine/Amphetamine [Adderall] 30 mg PO BID 02/14/20 [History] Ibuprofen [Motrin] 800 mg PO BID PRN 02/14/20 [History] Levothyroxine Sodium [Synthroid] 175 mcg PO DAILY 02/14/20 [History] Multivitamins, Thera [Multivitamin (formulary)] 1 tab PO DAILY 02/14/20 [History] Omeprazole 20 mg PO DAILY 02/14/20 [History] Vit C/E/Zn/Coppr/Lutein/Zeaxan [Preservision Areds 2 Softgel] 1 cap PO DAILY 02/14/20 [History] tiZANidine [Zanaflex] 4 mg PO BID PRN 02/14/20 [History] Gabapentin [Neurontin] 200 mg PO BID #20 cap 02/15/20 [Rx] HYDROcodone/APAP 5-325MG [[place] 5-325] 1 each PO Q4HR PRN #18 tab 02/15/20 [Rx] fentaNYL 12MCG/HR PATCH [Duragesic 12MCG/HR] 1 patch TRANSDERM Q72H #3 patch 02/15/20 [Rx] Follow up Appointment(s)/Referral(s): Sarahi Whitaker MD [STAFF PHYSICIAN] - 1 Week Jerald Singleton DO [STAFF PHYSICIAN] - 02/18/20 3:30 am Patient Instructions/Handouts: Back Pain (ED) Discharge Disposition: HOME SELF-CARE
== END 2020-02-15 16:48 | disposition home or self-care (01) ==
LOC: EC 02:35 → 1SOBS 05:45
PROVIDERS: ADMIT Hospitalist; ATTEND Hospitalist
DX: M54.41 Lumbago with sciatica, right side (principal); M62.89 Other specified disorders of muscle; R59.0 Localized enlarged lymph nodes; J39.8 Other specified diseases of upper respiratory tract; C73 Malignant neoplasm of thyroid gland; N63.20 Unspecified lump in the left breast, unspecified quadrant; E89.0 Postprocedural hypothyroidism; E66.9 Obesity, unspecified; F17.200 Nicotine dependence, unspecified, uncomplicated; Z91.19 Patient's noncompliance with other medical treatment and regimen; Z87.09 Personal history of other diseases of the respiratory system; Z98.82 Breast implant status; Z79.899 Other long term (current) drug therapy; Z79.1 Long term (current) use of non-steroidal anti-inflammatories (NSAID); Z79.890 Hormone replacement therapy; Z68.28 Body mass index [BMI] 28.0-28.9, adult; Z92.3 Personal history of irradiation
CPT/HCPCS: 96372 ×2; 96376 ×3; 96374; 96375; 99284; 36415; 80053; 80048; 85025; 84432; 72132; 71260; 74177; G0378 ×2; J1644 ×2; J2930; J1170 ×3; Q9967 ×2

== ENCOUNTER 2020-02-23 08:10 | Day surgery (SDC) | payer OTHER ==
[2020-02-23 08:32] VITALS: RESP 16; TEMP 98.3
[2020-02-23 10:16] VITALS: BP 120/63; PULSE 80
--- NOTE | 2020-02-23 16:15 | US ---
EXAMINATION TYPE: US biopsy lymph node DATE OF EXAM: 02/23/2020 COMPARISON: CT chest abdomen pelvis 02/15/2020 HISTORY: Right groin lymph node biopsy. Malignant neoplasm of thyroid gland. EAR[employer] SCIENCES PROFESSOR: Dr. Heidi Huang PROCEDURE: The procedure was discussed with the patient. The risks, complications, benefits, and alternatives we re discussed and any questions were answered. Informed consent was obtained. Maximal barrier technique was utilized. Ultrasound using sterile technique. Patient was placed supine on the ultrasound table. The skin overlying the right groin lymph nodes was localized with ultrasoun d and the overlying skin prepped and draped. Lidocaine used for local anesthesia. 18-gauge core biops y needle inserted into the right groin lymphadenopathy under continuous ultrasound guidance, and core biopsy was obtained. This was repeated for a total of 3 passes. Core biopsies submitted in formalin for histopathology. Following the procedure hemostasis achieved. No immediate complication. Post procedure imaging demonstrates no significant hemorrhage. IMPRESSION: Status post ultrasound-guided 18-gauge core biopsy of right inguinal lymphadenopathy, pat hology pending.
== END 2020-02-23 10:28 | disposition home or self-care (01) ==
LOC: RADPROMAIN 08:10
PROVIDERS: ATTEND Radiology Radiation Oncology
DX: R59.0 Localized enlarged lymph nodes (principal); R89.7 Abnormal histological findings in specimens from other organs, systems and tissues; C73 Malignant neoplasm of thyroid gland; M62.89 Other specified disorders of muscle; E89.0 Postprocedural hypothyroidism; M54.31 Sciatica, right side; R20.0 Anesthesia of skin; R20.2 Paresthesia of skin; F17.200 Nicotine dependence, unspecified, uncomplicated; Z91.19 Patient's noncompliance with other medical treatment and regimen; Z87.09 Personal history of other diseases of the respiratory system; Z92.3 Personal history of irradiation; Z98.82 Breast implant status; Z79.899 Other long term (current) drug therapy; Z79.1 Long term (current) use of non-steroidal anti-inflammatories (NSAID); Z79.890 Hormone replacement therapy; Z79.891 Long term (current) use of opiate analgesic
CPT/HCPCS: 38505; 76942

== ENCOUNTER → 2020-03-25 | Outpatient (CLI) | payer OTHER ==
--- NOTE | 2020-03-27 14:24 | PE ---
Nuclear medicine PET/CT HISTORY: Lymphoma, initial, large cell B lymphoma, history of thyroid carcinoma Patient received 10.8 mCi F-18 FDG intravenously in delayed scanning was performed from skull base to the mid thighs. Localization and attenuation correction CT scan was performed. Correlation CT chest abdomen pelvis 02/15/2020 Chest and neck: There is some asymmetric uptake along the palatine tonsil right greater than left, an terior cervical chain on the right deep to the parotid gland shows a focus of hypermetabolic uptake a nd is enlarged node at the site of possible prior biopsy, multiple metallic clips are present at this level. Right submandibular region also shows some uptake with some associated adenopathy suspected. At the level of the mid right clavicle there is also a focus of soft tissue and associated uptake, on ly mild uptake noted in the right axillary region, no enlarged nodes at this level. Adjacent to the e xpected region of the thyroid which is not seen, there is a focus of uptake present. In the right par atracheal region there is adenopathy with associated uptake. Bilateral breast prostheses are noted in cidentally. There is no pleural or pericardial effusion. No evident lung mass. Emphysematous changes are present within the lungs. ABDOMEN: No enlarged retroperitoneal nodes although there is a focus of uptake present between the ao rta and inferior vena cava the level of the kidneys. Right iliac chain shows a focus of soft tissue c onsistent with an enlarged node in increased uptake. Along the right pelvic sidewall there is an enla rged node as there is also within the bilateral groins, enlarged nodes show associated uptake. MUSCULOSKELETAL: Along the right sacrum there is bone erosion present at the posterior sacroiliac mary nt, some associated abnormal thickening of the musculature at this level on the right also shows abno rmal uptake. The left sacrum also shows a focus of uptake. IMPRESSION: Abnormal uptake consistent with patient's history of lymphoma. Additional findings above.
== END | disposition home or self-care (01) ==
LOC: RADPETMAIN 08:39
PROVIDERS: ATTEND Internal Medicine Hematology & Oncology
DX: C83.38 Diffuse large B-cell lymphoma, lymph nodes of multiple sites (principal)
CPT/HCPCS: 78815; A9552

== ENCOUNTER → 2020-03-30 | Outpatient (CLI) | payer OTHER ==
--- NOTE | 2020-03-30 17:08 | ECHOF ---
Referral Reason:Z01.818 pre chemo MEASUREMENTS -------- HEIGHT: 170.2 cm WEIGHT: 79.4 kg BP: RVIDd: 2.9 cm (< 3.3) IVSd: 1.3 cm (0.6 - 1.1) LVIDd: 3.6 cm (3.9 - 5.3) LVPWd: 1.3 cm (0.6 - 1.1) IVSs: 1.7 cm LVIDs: 1.8 cm LVPWs: 1.9 cm LAESV Index (A-L): 18.73 ml/m Ao Diam: 3.0 cm (2.0 - 3.7) AV Cusp: 2.1 cm (1.5 - 2.6) LA Diam: 3.2 cm (2.7 - 3.8) MV EXCURSION: 8.200 mm (> 18.000) MV EF SLOPE: 89 mm/s (70 - 150) EPSS: 0.6 cm MV E Jose: 0.91 m/s MV DecT: 178 ms MV A Jose: 1.12 m/s MV E/A Ratio: 0.81 RAP: 5.00 mmHg RVSP: 17.86 mmHg FINDINGS -------- This was a technically good study. The left ventricular size is normal. There is mild concentric left ventricular hypertrophy. Overa ll left ventricular systolic function is normal with, an EF between 55 - 60 %. The diastolic fillin g pattern is normal for the age of the patient 11.36. The right ventricle is normal in size. The left atrial size is normal. Normal LA size by volume 22+/-6 ml/m2. The right atrial size is normal. The aortic valve is trileaflet and appears structurally normal. The mitral valve is normal. There is trace mitral regurgitation. The tricuspid valve appears structurally normal. Trace tricuspid regurgitation present. Right frandy tricular systolic pressure is normal at < 35 mmHg. There is no pulmonic regurgitation present. The aortic root size is normal. Normal inferior vena cava with normal inspiratory collapse consistent with estimated right atrial pre ssure of 5 mmHg. There is no pericardial effusion. CONCLUSIONS -------- 1. The left ventricular size is normal. 2. There is mild concentric left ventricular hypertrophy. 3. Overall left ventricular systolic function is normal with, an EF between 55 - 60 %. 4. The diastolic filling pattern is normal for the age of the patient 11.36 5. There is trace mitral regurgitation. 6. Trace tricuspid regurgitation present. 7. There is no pericardial effusion. MAGNETIC TESTING TECHNICIAN: Apurva Berkowitz RDCS
== END | disposition home or self-care (01) ==
LOC: RADECHMAIN 11:00
PROVIDERS: ATTEND Internal Medicine Hematology & Oncology
DX: I51.7 Cardiomegaly (principal)
CPT/HCPCS: 93306

== ENCOUNTER 2020-08-13 15:12 | Inpatient (IN) | payer OTHER ==
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
[2020-08-13 16:57] LABS: Basophils # (A) 0.1 k/uL (0-0.2); Basophils % (A) 1 %; Eosinophils # (A) 0.2 k/uL (0-0.7); Eosinophils % (A) 3 %; HCT 42.7 % (34.0-46.0); HGB 14.7 gm/dL (11.4-16.0); Lymphocytes % (A) 16 %; MCH 29.8 pg (25.0-35.0); MCHC 34.4 g/dL (31.0-37.0); MCV 86.7 fL (80.0-100.0); Mean Platelet Volume 7.3; Monocytes # (A) 0.5 k/uL (0-1.0); Monocytes % (A) 8 %; Neutrophils # (A) 4.4 k/uL (1.3-7.7); Neutrophils % (A) 70 %; Platelet Count 285 k/uL (150-450); RBC 4.93 m/uL (3.80-5.40); RDW 13.1 % (11.5-15.5); WBC 6.3 k/uL (3.8-10.6)
[2020-08-13 17:16] LABS: ALT 19 U/L (4-34); AST 21 U/L (14-36); African American GFR (CKD) >90 (>60 ml/min/1.73 sqM); Albumin 4.4 g/dL (3.5-5.0); Alkaline Phosphatase 98 U/L (38-126); Anion Gap 6 mmol/L; Blood Urea Nitrogen 14 mg/dL (7-17); Calcium 9.2 mg/dL (8.4-10.2); Carbon Dioxide 27 mmol/L (22-30); Chloride 106 mmol/L (98-107); Creatine Kinase 139 U/L (30-135); Glucose 111 mg/dL (74-99); Magnesium 2.2 mg/dL (1.6-2.3); Non-African American GFR(CKD) >90 (>60 ml/min/1.73 sqM); Potassium 3.7 mmol/L (3.5-5.1); Sodium 139 mmol/L (137-145); Total Bilirubin 0.4 mg/dL (0.2-1.3); Total Protein 6.9 g/dL (6.3-8.2)
--- NOTE | 2020-08-13 17:17 | CT ---
EXAMINATION TYPE: CT brain wo con DATE OF EXAM: 08/13/2020 COMPARISON: None HISTORY: AMS CT DLP: 1094.4 mGycm Automated exposure control for dose reduction was used. Ventricles and sulci appear normal. There is no mass effect nor midline shift. There is no sign of in tracranial hemorrhage. The calvarium is intact. Skull base is intact. There is normal aeration of the mastoid sinuses. IMPRESSION: Normal unenhanced head CT scan.
[2020-08-13 17:44] LABS: Amphetamine Screen,Urine Detected (NotDetected); Barbiturate Screen,Urine Not Detected (NotDetected); Benzodiazepines Screen,Urine Detected (NotDetected); Cocaine Screen,Urine Not Detected (NotDetected); Methadone Screen, Urine Not Detected (NotDetected); Opiate Screen,Urine Detected (NotDetected); Oxycodone Screen, Urine Not Detected (NotDetected); Phencyclidine Screen,Urine Not Detected (NotDetected); Tricyclic Antidepressant,Urine Not Detected (NotDetected); Urn Cannabinoid Scrn Detected (NotDetected)
[2020-08-13] MEDS ORDERED: ALPRAZolam 1 MG TAB PO STA (18:32)
[2020-08-13] MEDS ORDERED: HYDROcodone/APAP 5-325MG 1 EACH TAB PO STA (18:32)
[2020-08-13] MEDS ORDERED: KETOROLAC 15 MG/ML 1 ML VIAL IVP STA (18:51)
[2020-08-13 19:18] LABS: T4, Free (Free Thyroxine) 1.87 ng/dL (0.78-2.19)
[2020-08-13] MEDS ORDERED: LORazepam 1 MG TAB PO ONE (20:20)
[2020-08-13] MEDS ORDERED: PANTOPRAZOLE 40 MG TABLET PO STA (21:30)
[2020-08-13] MEDS ORDERED: IBUPROFEN 800 MG TAB PO PRN (23:01)
[2020-08-13] MEDS ORDERED: LORazepam 2 MG/ML INJ IM PRN (23:03)
[2020-08-13] MEDS ORDERED: HALOPERIDOL LACTATE 5 MG/ML 1 ML VIAL IM PRN (23:03)
[2020-08-14] MEDS ORDERED: ACETAMINOPHEN TAB 325 MG TAB PO PRN
[2020-08-14] MEDS ORDERED: MAG HYDROX/AL HYDROX/SIMETH 30 ML CUP PO PRN
--- NOTE | 2020-08-14 00:46 | P.MDCNMH ---
History of Present Illness H&P Date: 08/14/20 Chief Complaint: medical evaluation 50 year old female with history of thyroid cancer, and possible lymphoma patient brought in under excelsior picker order due to depression and delusions, she describes visual hallucinations where she sees demons. she was found in very poor hygiene status she describes some diarrhea since she had some sandwitch in the ED, other than that, denies any fever, chills, chest pain , trouble breathing , URI symptoms , urinary changes she had 5 attacks of loose stools over past 3 hours, denies any GI bleeding Review of Systems Pertinent positives as noted in HPI. All other systems were reviewed and are negative Past Medical History Past Medical History: Cancer, GERD/Reflux, Osteoarthritis (OA), Thyroid Disorder Additional Past Medical History / Comment(s): Thyroid Cancer, Right sided spontaneuos pneumothorax, migraines History of Any Multi-Drug Resistant Organisms: None Reported Additional Past Surgical History / Comment(s): bilateral breast Implants, Thyroidectomy--modified radical neck dissection with lymph node removal and poor healing post surgery, chest tube on right post pneumothorax placed and then removed, leep procedure--no menstrual cycle since, bronchoscopy with biopsy Past Anesthesia/Blood Transfusion Reactions: No Reported Reaction Past Psychological History: No Psychological Hx Reported Smoking Status: Current every day smoker Past Alcohol Use History: None Reported Additional Past Alcohol Use History / Comment(s): smokes 1/2 pack per day Past Drug Use History: Marijuana Additional Drug Use History / Comment(s): medical marijuana per patient - Past Family History Mother Family Medical History: Cancer Additional Family Medical History / Comment(s): vaginal area cancer Medications and Allergies Home Medications Medication Instructions Recorded Confirmed Type ALPRAZolam [Xanax] 1 mg PO TID PRN 02/14/20 02/23/20 History Dextroamphetamine/Amphetamine 30 mg PO BID 02/14/20 02/23/20 History [Adderall] Ibuprofen [Motrin] 800 mg PO BID PRN 02/14/20 02/23/20 History Levothyroxine Sodium [Synthroid] 175 mcg PO DAILY 02/14/20 02/23/20 History Multivitamins, Thera [Multivitamin 1 tab PO DAILY 02/14/20 02/23/20 History (formulary)] Omeprazole 20 mg PO DAILY 02/14/20 02/23/20 History Vit C/E/Zn/Coppr/Lutein/Zeaxan 1 cap PO DAILY 02/14/20 02/23/20 History [Preservision Areds 2 Softgel] tiZANidine [Zanaflex] 4 mg PO BID PRN 02/14/20 02/23/20 History Gabapentin [Neurontin] 200 mg PO BID #20 cap 02/15/20 02/23/20 Rx HYDROcodone/APAP 5-325MG [[place] 1 each PO Q4HR PRN #18 tab 02/15/20 02/23/20 Rx 5-325] fentaNYL 12MCG/HR PATCH [Duragesic 1 patch TRANSDERM Q72H #3 patch 02/15/20 02/23/20 Rx 12MCG/HR] Topiramate [Topamax] 50 mg PO BID 02/19/20 02/23/20 History hydroCHLOROthiazide 25 mg PO DAILY 02/19/20 02/23/20 History Allergies Allergy/AdvReac Type Severity Reaction Status Date / Time No Known Allergies Allergy Verified 08/13/20 15:28 Physical Exam Vitals: Vital Signs Temp Pulse Pulse Resp BP BP Pulse Ox 08/13/20 23:37 98.2 F 82 18 140/88 99 08/13/20 18:00 18 08/13/20 17:24 18 08/13/20 15:27 98.9 F 94 20 135/85 99 Intake and Output 08/13/20 08/13/20 08/14/20 14:59 22:59 06:59 Other: Weight 86.183 kg 87.3 kg Constitutional: No acute distress, conversant, pleasant Eyes: Anicteric sclerae, moist conjunctiva, Pupils equal round reactive to light ENMT: NC/AT Oropharynx clear, no erythema, or exudates Neck: Supple, FROM, no masses, or JVD No carotid bruits No thyromegaly Lungs: Clear to auscultation Clear to percussion Normal respiratory effort, no accessory muscle use Cardiovascular: Heart regular in rate and rhythm, No murmurs, gallops, or rubs No peripheral edema Abdominal: Soft Nontender, no guarding, rebound or rigidity Abdomen moving with respiration Normoactive bowel sounds No hepatomegaly, No splenomegaly No palpable mass No abdominal wall hernia noted Skin: Normal temperature, tone, texture, turgor No induration No subcutaneous nodules No rash, lesions No ulcers Extremities: No digital cyanosis No clubbing Pedal pulses intact and symmetrical Radial pulses intact and symmetrical No calf tenderness Psychiatric: Alert and oriented to person, place and time depressed affect Neuro Muscles Strength 5/5 in all 4 extremities Sensation to light touch grossly present throughout Cranial nerves II-XII grossly intact No focal sensory deficits Lymphatics: no palpable cervical or supraclavicular , or inguinal lymph nodes Cranial Nerve Examination - Cranial Nerves Cranial Nerve II- Optic: Intact Cranial Nerve III- Oculomotor: Intact Cranial Nerve IV- Trochlear: Intact Cranial Nerve V- Trigeminal: Intact Cranial Nerve - Abducens: Intact Cranial Nerve VII- Facial: Intact Cranial Nerve VIII- Auditory: Intact Cranial Nerve IX- Glossopharyngeal: Intact Cranial Nerve X- Vagus: Intact Cranial Nerve XI- Accessory: Intact Cranial Nerve XII- Hypoglossal: Intact Results CBC & Chem 7: 08/13/20 16:45 08/13/20 16:45 Labs: Abnormal Lab Results - Last 24 Hours (Table) 08/13/20 08/13/20 Range/Units 16:45 17:23 Glucose 111 H (74-99) mg/dL Creatine Kinase 139 H (30-135) U/L TSH 0.311 L (0.465-4.680) mIU/L Urine Opiates Screen Detected H (NotDetected) Ur Amphetamines Screen Detected H (NotDetected) U Benzodiazepines Scrn Detected H (NotDetected) U Marijuana (THC) Screen Detected H (NotDetected) Assessment and Plan Assessment: depression management per Psych history of thyroid cancer, lymphoma , OP follow up hypothyroid , resume levothyroxine diarrhea, Bismuth as needed labs reviewed Thank you for allowing us to participate in the care of this patient. We will follow peripherally. Do not hesitate to contact us with questions. Someone can be reached from the [facility] hospitalist group at all hours of the day at [phone].
[2020-08-14] MEDS ORDERED: BISMUTH SUBSALICYLATE 4,192 MG/240 ML BOTTLE PO PRN (01:00)
[2020-08-14] MEDS: LORazepam 1 MG TAB PO PRN (04:08)
[2020-08-14] MEDS: LEVOTHYROXINE 88 MCG TAB PO SCH (06:41)
[2020-08-14] MEDS: TOPIRAMATE 25 MG TAB PO SCH ×2 (08:51→21:31)
[2020-08-14] MEDS: PANTOPRAZOLE 40 MG TABLET PO SCH (08:51)
[2020-08-14] MEDS: hydroCHLOROthiazide 25 MG TAB PO SCH (08:51)
[2020-08-14] MEDS: NICOTINE 14MG/24HR PATCH TRANSDERM SCH (08:51)
[2020-08-14] MEDS: MULTIVITAMINS, THERA 1 EACH TAB PO SCH (08:51)
[2020-08-14] MEDS ORDERED: tiZANidine 4 MG TAB PO PRN (09:00)
[2020-08-14] MEDS ORDERED: MAGNESIUM HYDROXIDE 2,400 MG/10 ML CUP PO PRN (09:00)
[2020-08-14] MEDS ORDERED: LORazepam 1 MG TAB PO SCH (09:00)
[2020-08-14 09:08] LABS: Cholesterol 208 mg/dL (<200); HDL Cholesterol 44 mg/dL (40-60); LDL Cholesterol,Calculated 134 mg/dL (0-99); Triglycerides 148 mg/dL (<150)
[2020-08-14] MEDS: GABAPENTIN 100 MG CAP PO SCH ×2 (09:08→21:31)
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
[2020-08-14 13:52] LABS: Hemoglobin A1C 5.6 % (4.0-6.0)
[2020-08-15] MEDS: LEVOTHYROXINE 88 MCG TAB PO SCH (06:51)
[2020-08-15] MEDS: NICOTINE 14MG/24HR PATCH TRANSDERM SCH (09:18)
[2020-08-15] MEDS: GABAPENTIN 100 MG CAP PO SCH ×2 (09:18→21:24)
[2020-08-15] MEDS: PANTOPRAZOLE 40 MG TABLET PO SCH (09:21)
[2020-08-15] MEDS: hydroCHLOROthiazide 25 MG TAB PO SCH (09:21)
[2020-08-15] MEDS: MULTIVITAMINS, THERA 1 EACH TAB PO SCH (09:21)
[2020-08-15] MEDS: TOPIRAMATE 25 MG TAB PO SCH ×2 (09:21→21:20)
[2020-08-15] MEDS: HYDROcodone/APAP 5-325MG 1 EACH TAB PO PRN ×2 (09:22→21:24)
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
[2020-08-15] MEDS: SERTRALINE 50 MG TAB PO SCH (15:46)
[2020-08-15] MEDS: LORazepam 1 MG TAB PO PRN (16:31)
[2020-08-15] MEDS ORDERED: PALIPERIDONE 3 MG TAB.ER.24 PO SCH (21:00)
[2020-08-16] MEDS: GABAPENTIN 100 MG CAP PO SCH ×2 (09:36→20:52)
[2020-08-16] MEDS: LEVOTHYROXINE 88 MCG TAB PO SCH (09:36)
[2020-08-16] MEDS: hydroCHLOROthiazide 25 MG TAB PO SCH (09:36)
[2020-08-16] MEDS: TOPIRAMATE 25 MG TAB PO SCH ×2 (09:39→20:51)
[2020-08-16] MEDS: SERTRALINE 50 MG TAB PO SCH (09:39)
[2020-08-16] MEDS: MULTIVITAMINS, THERA 1 EACH TAB PO SCH (09:39)
[2020-08-16] MEDS: PANTOPRAZOLE 40 MG TABLET PO SCH (09:39)
[2020-08-16] MEDS: NICOTINE 14MG/24HR PATCH TRANSDERM SCH (09:43)
[2020-08-16] MEDS ORDERED: hydrOXYzine pamoate 25 MG CAP PO PRN (11:34)
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
[2020-08-16] MEDS: LORazepam 1 MG TAB PO PRN ×2 (13:33→21:30)
[2020-08-16] MEDS ORDERED: risperiDONE 2 MG TAB PO SCH (21:00)
[2020-08-16] MEDS: HYDROcodone/APAP 5-325MG 1 EACH TAB PO PRN (23:06)
[2020-08-17] MEDS: LEVOTHYROXINE 88 MCG TAB PO SCH (07:00)
[2020-08-17] MEDS: GABAPENTIN 100 MG CAP PO SCH ×2 (09:22→20:51)
[2020-08-17] MEDS: NICOTINE 14MG/24HR PATCH TRANSDERM SCH (09:22)
[2020-08-17] MEDS: hydroCHLOROthiazide 25 MG TAB PO SCH (09:23)
[2020-08-17] MEDS: MULTIVITAMINS, THERA 1 EACH TAB PO SCH (09:23)
[2020-08-17] MEDS: SERTRALINE 100 MG TAB PO SCH (09:23)
[2020-08-17] MEDS: TOPIRAMATE 25 MG TAB PO SCH ×2 (09:23→20:52)
[2020-08-17] MEDS: PANTOPRAZOLE 40 MG TABLET PO SCH (09:23)
--- NOTE | 2020-08-17 09:49 | P.PN ---
Progress Note - Text Progress Note Date: 08/17/20 Interval History: Patient was seen laying in her bed and was directable and agreeable to speak w ith handbook writer in the office. Patient appears to continue having fairly poor insight and judgment into her need for hospitalization and treatment and remains focused on discharge. She asked multiple times today to be discharged. She asked several questions about the court process and still has not spoken with her side hemmer.. She continues to be gaurded about the events that occured before she came to the hospital. She states that "I don't want to talk about it again". She states that she has not been going to groups as she does not feel like sharing things with other people here and does not trust them. She appeared to be fairly upset today and spoke about her cat being put up for adoption from the assisted instead of it being held until she was released. She claims that last night she was feeling agitated and irritable after taking the Risperdal and states that she had an elevated heart rate and requested to be switched off this medication. She was denying any paranoia during the interview. At this time patient denies any suicidal or homical ideations, intent or plan. Patient denies any auditory, visual hallucinations. Patient denies any side effects from theedications and has been compliant with meds. She states that her mood is "fine". Mental Status Exam: General Appearance: Patient appears to be stated age is alert, directable, and superficially cooperative. guarded. Wearing glasses. Behavior: Patient is calmly seated without any agitated behavior. Speech: Patient's speech is fluent and nonpressured. Mood/Affect: Mood is depressed, improving mildly, affect is congruent and constricted. Suicidality/Homicidality: Patient denies having any suicidal or homicidal ideation intent or plan. Perceptions: Patient denies any visual hallucinations and denies any auditory hallucinations Though content/process: Poor insight and judgment. Minimizing her need for treatment and hospitalization. focused on discharge and court Memory and concentration: AOX3, grossly intact for the purposes of this session Judgment and insight: Poor, improving mildly Assessment Major depression recurrent severe with psychotic features Cannabis abuse Opiate abuse Possible stimulant abuse Nicotine dependence Plan: -Patient continues to meet criteria for inpatient psychiatric admission for symptom stabilization and safety. Patient has not signed adult voluntary form and was placed in patient's chart. Patient has signed medication consent form. -Medications: switched to Risperdal with zyprexa PO 5 mg at bedtime for psychosis as she claimed she had a bad reaction to risperdal. continue Zoloft 100 mg daily for mood/anxiety. -When necessary Ativan and Haldol for agitation/aggression. -NRT - nicotine patch -SW on board for discharge planning. Encouraged the patient to participate in milieu. Currently awaiting deferral with admitted attorneys which will occur tomorrow.
[2020-08-17] MEDS: LORazepam 1 MG TAB PO PRN (20:51)
[2020-08-17] MEDS: OLANZapine 5 MG TAB PO SCH (20:52)
[2020-08-17] MEDS: HYDROcodone/APAP 5-325MG 1 EACH TAB PO PRN (20:52)
[2020-08-18] MEDS: LEVOTHYROXINE 88 MCG TAB PO SCH (07:00)
[2020-08-18 07:13] VITALS: BP 124/71; RESP 16
[2020-08-18] MEDS: NICOTINE 14MG/24HR PATCH TRANSDERM SCH (08:22)
[2020-08-18] MEDS: SERTRALINE 100 MG TAB PO SCH (08:22)
[2020-08-18] MEDS: TOPIRAMATE 25 MG TAB PO SCH ×2 (08:22→20:40)
[2020-08-18] MEDS: MULTIVITAMINS, THERA 1 EACH TAB PO SCH (08:22)
[2020-08-18] MEDS: GABAPENTIN 100 MG CAP PO SCH ×2 (08:23→20:40)
[2020-08-18] MEDS: PANTOPRAZOLE 40 MG TABLET PO SCH (08:24)
[2020-08-18] MEDS: hydroCHLOROthiazide 25 MG TAB PO SCH (08:24)
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
[2020-08-18] MEDS: OLANZapine 5 MG TAB PO SCH (20:40)
[2020-08-18] MEDS: LORazepam 1 MG TAB PO PRN (20:42)
[2020-08-18] MEDS: HYDROcodone/APAP 5-325MG 1 EACH TAB PO PRN (20:42)
[2020-08-19] MEDS: LEVOTHYROXINE 88 MCG TAB PO SCH (06:44)
[2020-08-19] MEDS: hydroCHLOROthiazide 25 MG TAB PO SCH (08:45)
[2020-08-19] MEDS: NICOTINE 14MG/24HR PATCH TRANSDERM SCH (08:46)
[2020-08-19] MEDS: GABAPENTIN 100 MG CAP PO SCH (08:46)
[2020-08-19] MEDS: MULTIVITAMINS, THERA 1 EACH TAB PO SCH (08:46)
[2020-08-19] MEDS: PANTOPRAZOLE 40 MG TABLET PO SCH (08:47)
[2020-08-19] MEDS: TOPIRAMATE 25 MG TAB PO SCH (08:47)
[2020-08-19] MEDS: SERTRALINE 100 MG TAB PO SCH (08:47)
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
[2020-08-19 10:18] VITALS: PULSE 106; TEMP 97.3
== END 2020-08-19 12:30 | disposition home or self-care (01) | DRG 885 ==
LOC: EC 15:12 → 3MHU 22:46
PROVIDERS: ADMIT Psychiatry & Neurology Psychiatry; ATTEND Psychiatry & Neurology Psychiatry
DX: F33.3 Major depressive disorder, recurrent, severe with psychotic symptoms (principal); R45.851 Suicidal ideations; E89.0 Postprocedural hypothyroidism; F11.10 Opioid abuse, uncomplicated; F12.10 Cannabis abuse, uncomplicated; F17.200 Nicotine dependence, unspecified, uncomplicated; F41.1 Generalized anxiety disorder; M19.90 Unspecified osteoarthritis, unspecified site; G47.00 Insomnia, unspecified; K21.9 Gastro-esophageal reflux disease without esophagitis; Z20.822 Contact with and (suspected) exposure to COVID-19; Z79.890 Hormone replacement therapy; Z79.899 Other long term (current) drug therapy; Z85.850 Personal history of malignant neoplasm of thyroid; Z98.82 Breast implant status; Z79.1 Long term (current) use of non-steroidal anti-inflammatories (NSAID); Z98.890 Other specified postprocedural states; Z80.49 Family history of malignant neoplasm of other genital organs; Z91.018 Allergy to other foods
CPT/HCPCS: 36415; 70450; 80053; 80061; 80306; 81025; 82075; 82550; 83036; 83735; 84439; 84443; 85025; 87635; 96374; 99285

== ENCOUNTER → 2021-03-03 | Outpatient (CLI) | payer OTHER ==
--- NOTE | 2021-03-06 09:00 | PE ---
EXAMINATION TYPE: PET CT fusion skull to thigh DATE OF EXAM: 03/03/2021 COMPARISON: CT chest abdomen and pelvis 02/15/2020 Prior PET/CT: 03/25/2020 HISTORY: Lymphoma TECHNIQUE: Following the intravenous administration of mCi of F-18 FDG, whole body images are perfor med from the skull base to the midthigh. Images are reviewed on the computer in the coronal, axial, and sagittal planes. Reconstructed rotating images are created on independent workstation and review ed on the computer. A localization and attenuation correction CT is performed in conjunction with t he PET scan. DLP: 462.53 mGycm SCAN: Subsequent Blood glucose: 89 mg/dL Average Mediastinum SUV: 1.48 Average Liver SUV: 1.84 FINDINGS: NECK: Tense uptake within the right torus tubarius with an SUV value 7.43. Some vague uptake is with in the right neck near the angle of the jaw with an SUV of 3.01. Image 36. Some right tonsillar eddie r uptake may be present within SUV value of 3.5 the same image. There is a supraclavicular lymph node with uptake measuring 2.92, image 53. THORAX: No abnormal uptake ABDOMEN: No abnormal uptake PELVIS: No suspicious uptake within the iliac chain or obturator canal regions. There is multiple areas of marked uptake within the left inguinal masses. Example image 242 with an S UV value of 7.55. Additionally, the prominent right inguinal lymph nodes are hyperintense, example im age 224 with an SUV value of 5.96. OSSEOUS STRUCTURES: No abnormal uptake LOCALIZATION CT: The ascending thoracic aorta at the level of the main pulmonary artery is 3.9 cm. Ma in pulmonary artery bifurcation is 2.8 cm. Some coronary artery calcification is noted. Bilateral emile ast prostheses are present. There are several large masses within the left inguinal region. Enlarged lymphadenopathy on the right inguinal region appears to be present. COMPARISON: Uptake within the right torus tubarius has increased over the interval. There may be some diminished intensity within the right tonsillar pillar. Intensity within the right neck adenopathy is diminished . Supraclavicular lymph nodes present previously. Uptake within previous enlarged mediastinal adenopathy has resolved. Uptake within the right hemipelvis has resolved right inguinal chain has resolved. Uptake within the inguinal region appears diminished although the left inguinal masses have enlarged over the interval. IMPRESSION: 1. Left inguinal masses have enlarged over the interval. 2. Uptake within the neck is improved. 3. Uptake within the intraperitoneal pelvis and within the mediastinum appear resolved.
== END | disposition home or self-care (01) ==
LOC: RADPETMAIN 13:13
PROVIDERS: ATTEND Radiology Radiation Oncology
DX: C83.35 Diffuse large B-cell lymphoma, lymph nodes of inguinal region and lower limb (principal); J98.4 Other disorders of lung; E89.0 Postprocedural hypothyroidism; Z85.850 Personal history of malignant neoplasm of thyroid
CPT/HCPCS: 78815; A9552

== ENCOUNTER → 2021-03-09 | Outpatient (CLI) | payer OTHER ==
--- NOTE | 2021-03-23 13:57 | ECHOF ---
Referral Reason:[id number] pre chemo MEASUREMENTS -------- HEIGHT: 167.6 cm WEIGHT: 89.4 kg BP: 120/80 RVIDd: 3.1 cm (< 3.3) IVSd: 1.3 cm (0.6 - 1.1) LVIDd: 4.8 cm (3.9 - 5.3) LVPWd: 1.2 cm (0.6 - 1.1) IVSs: 2.1 cm LVIDs: 2.4 cm LVPWs: 1.8 cm LAESV Index (A-L): 28.20 ml/m Ao Diam: 3.0 cm (2.0 - 3.7) AV Cusp: 2.2 cm (1.5 - 2.6) LA Diam: 3.1 cm (2.7 - 3.8) MV EXCURSION: 10.378 mm (> 18.000) MV EF SLOPE: 66 mm/s (70 - 150) EPSS: 0.6 cm MV E Jose: 0.92 m/s MV DecT: 257 ms MV A Jose: 0.85 m/s MV E/A Ratio: 1.08 AR PHT: 756 ms RAP: 5.00 mmHg RVSP: 29.58 mmHg FINDINGS -------- Sinus rhythm. This was a technically adequate study. The left ventricular size is normal. There is mild concentric left ventricular hypertrophy. Overa ll left ventricular systolic function is normal with, an EF between 55 - 60 %. The diastolic fillin g pattern is normal for the age of the patient 12.62. The right ventricle is normal in size. LA is midly dilated 29-33ml/m2. The right atrial size is normal. Interatrial and interventricular septum intact. The aortic valve is trileaflet and appears structurally normal. Trace to mild aortic regurgitation. There is no evidence of aortic stenosis. Mild mitral regurgitation is present. Mild tricuspid regurgitation present. There is no evidence of pulmonary hypertension. The right v entricular systolic pressure, as measured by Doppler, is 29.58mmHg. There is no pulmonic regurgitation present. The aortic root size is normal. Normal inferior vena cava with normal inspiratory collapse consistent with estimated right atrial pre ssure of 5 mmHg. There is no pericardial effusion. CONCLUSIONS -------- 1. Sinus rhythm. 2. The left ventricular size is normal. 3. There is mild concentric left ventricular hypertrophy. 4. Overall left ventricular systolic function is normal with, an EF between 55 - 60 %. 5. The diastolic filling pattern is normal for the age of the patient 12.62 6. LA is midly dilated 29-33ml/m2. 7. Trace to mild aortic regurgitation. 8. Mild mitral regurgitation is present. 9. Mild tricuspid regurgitation present. COMMUNICATIONS MEDIA PROFESSOR: Ashlyn Quiles RDCS
== END | disposition home or self-care (01) ==
LOC: RADECHMAIN 14:02
PROVIDERS: ATTEND Internal Medicine Hematology & Oncology
DX: Z01.818 Encounter for other preprocedural examination (principal); I08.3 Combined rheumatic disorders of mitral, aortic and tricuspid valves
CPT/HCPCS: 93306

== ENCOUNTER 2021-03-17 07:28 | Day surgery (SDC) | payer OTHER ==
[2021-03-14 15:19] VITALS: BMI 31.3
[~2021-03-17 07:28] MED LIST: ACETAMINOPHEN TAB 500 MG TAB PO PRN; DEXAMETHASONE SOD PHOSPHATE 4 MG/ML 1 ML VIAL IV ONE; HEPARIN SODIUM,PORCINE/PF 5,000 UNIT/0.5 ML SYRINGE SQ PRN; HYDROmorphone 0.5 MG/0.5 ML SYRINGE IVP PRN; LACTATED RINGERS 1,000 ML IV SCH; LIDOCAINE 1% (10MG/ML) FOR IV START INTRADERMA PRN; ONDANSETRON 4 MG/2 ML VIAL IVP ONE; Pre Op ABX Message 1 EACH MISC MISCELLANE ONE; SCOPOLAMINE 1.5MG/72HR PATCH TRANSDERM ONE
[2021-03-17] MEDS ORDERED: BUPIVACAINE (PF) 0.25% 30 ML VIAL SQ ONE (08:25)
[2021-03-17] MEDS ORDERED: HEPARIN SODIUM,PORCINE 100 UNIT/ML 5 ML VIAL IV ONE ×2 (08:25)
--- NOTE | 2021-03-17 08:28 | P.GSHP ---
History of Present Illness H&P Date: 03/17/21 Chief Complaint: Lymphoma 51-year-old female here today for Port-A-Cath placement. Patient diagnosed previously with lymphoma. Beginning chemotherapy treatments apparently next week. Patient apparently had thyroid surgery with lymphadenectomy. She says that her right jugular vein and some of her muscle was removed from the right side of her neck. She has chronic pain on the right side of her neck result of that. Requesting that we placed the catheter on the left-hand side. Past Medical History Past Medical History: Cancer, COPD, GERD/Reflux, Hyperlipidemia, Osteoarthritis (OA), Thyroid Disorder Additional Past Medical History / Comment(s): Thyroid Cancer, Right sided spontaneuos pneumothorax, migraines, " TUMOR NEAR THE HEART" History of Any Multi-Drug Resistant Organisms: None Reported Past Surgical History: Breast Surgery Additional Past Surgical History / Comment(s): bilateral breast Implants, Thyroidectomy--modified radical neck dissection with lymph node removal and poor healing post surgery, chest tube on right post pneumothorax placed and then removed, leep procedure--no menstrual cycle since, bronchoscopy with biopsy, COLONOSCOPY X3 Past Anesthesia/Blood Transfusion Reactions: No Reported Reaction Smoking Status: Current every day smoker - Past Family History Mother Family Medical History: Cancer Additional Family Medical History / Comment(s): vaginal area cancer Father Family Medical History: Cancer, Deep Vein Thrombosis (DVT) Additional Family Medical History / Comment(s): LIVER CANCER Medications and Allergies Home Medications Medication Instructions Recorded Confirmed Type Ibuprofen [Motrin] 800 mg PO BID PRN 02/14/20 03/14/21 History Omeprazole 20 mg PO HS 02/14/20 03/17/21 History Levothyroxine Sodium [Synthroid] 175 mcg PO DAILY 30 Days tab 08/19/20 03/17/21 Rx Multivitamins, Thera [Multivitamin 1 each PO DAILY 30 Days tab 08/19/2007/03 Rx (formulary)] DULoxetine HCL [Cymbalta] 60 mg PO DAILY 03/14/21 03/17/21 History predniSONE 50 mg PO BID 03/14/21 03/14/21 History Allergies Allergy/AdvReac Type Severity Reaction Status Date / Time banana Allergy Nausea & Verified 03/17/21 07:51 Vomiting sertraline [From Zoloft] Allergy Diarrhea Verified 03/17/21 07:51 Surgical - Exam Vital Signs Temp Pulse Resp BP Pulse Ox 97.4 F L 71 16 148/67 98 03/17/21 07:48 03/17/21 07:48 03/17/21 07:48 03/17/21 07:48 03/17/21 07:48 Physical exam: General: Well-developed, well-nourished HEENT: Normocephalic, sclerae nonicteric, previous thyroid scar noted, mild tenderness right neck Abdomen: Nontender, nondistended Extremities: No edema Neuro: Alert and oriented Assessment and Plan (1) Lymphoma Narrative/Plan: Will proceed with Port-A-Cath placement at this time. Risks of bleeding, infection, DVT, pneumothorax, catheter malfunction, anesthesia related complications were discussed. The patient understands and wishes to proceed. Current Visit: Yes Status: Acute Code(s): C85.90 - NON-HODGKIN LYMPHOMA, UNSPECIFIED, UNSPECIFIED SITE SNOMED Code(s): 533632846
[2021-03-17] MEDS ORDERED: ePHEDrine 50 MG/ML 1 ML AMP ONE (08:30)
[2021-03-17] MEDS ORDERED: LIDOCAINE 1% INJ 10MG/ML (20 ML MDV) ONE (08:30)
[2021-03-17] MEDS ORDERED: fentaNYL (PF) 50 MCG/ML 2 ML AMP ONE (08:30)
[2021-03-17] MEDS ORDERED: PROPOFOL 10 MG/ML 20 ML VIAL IV ONE (08:30)
[2021-03-17] MEDS ORDERED: MIDAZOLAM 2 MG/2 ML VIAL ONE (08:30)
[2021-03-17] MEDS ORDERED: LIDOCAINE 1% INJ 10MG/ML (20 ML MDV) SQ ONE ×2 (08:53)
[2021-03-17] MEDS ORDERED: NALOXONE 0.4 MG/ML 1 ML VIAL IV PRN (09:28)
--- NOTE | 2021-03-17 09:29 | P.OP ---
Date of Procedure: 03/17/21 Procedure(s) Performed: PREOPERATIVE DIAGNOSIS: Lymphoma POSTOPERATIVE DIAGNOSIS: Same PROCEDURE: Port-A-Cath placement with fluoroscopic and ultrasound guidance SURGEON: Crystal EBL: Minimal ANESTHESIA: Sedation COMPLICATIONS: None OPERATIVE PROCEDURE: Patient was brought and placed on the operative table in the supine position. The patient was sedated per anesthesia that time. The chest and neck were prepped and draped in usual sterile fashion. The ultrasound probe was used to identify the location of the left internal jugular vein. The skin was localized with lidocaine. The Seldinger needle was advanced into the IJ under ultrasound guidance. The wire was advanced through the needle under fluoroscopic guidance into the superior vena cava. A port pocket was created in the left infraclavicular location. The catheter was tunneled from the wire entrance site to the port pocket. The port was then connected to the catheter. The dilator introducer was threaded over the guidewire. The guidewire and dilator were then removed. The catheter was advanced through the introducer and introducer was then removed. The tip was seen to be in the right atrial junction via fluoroscopy. A picture of the radiograph showing the tip at the radial digital junction was taken. Port was flushed with both saline and a Hep- Lock solution. There was good flow both in and out of the port. The port was sutured in underlying tissues using 3-0 silk sutures. The subcutaneous tissues were reapproximated using 3-0 Vicryl sutures and the skin at both locations using 4-0 Monocryl sutures. Skin glue and sterile dressings then applied. DISPOSITION: Stable to recovery room
--- NOTE | 2021-03-17 09:31 | FL ---
Fluoroscopy INDICATION: Pain, catheter placement FINDINGS: Fluoroscopy time: 43 seconds. Images obtained: 3. IMPRESSIONS: 1. Documentation of fluoroscopy.
[2021-03-17 09:46] VITALS: TEMP 97.7
[2021-03-17 09:47] VITALS: RESP 16
--- NOTE | 2021-03-17 10:03 | XR ---
EXAMINATION TYPE: XR chest 1V portable DATE OF EXAM: 03/17/2021 COMPARISON: None INDICATION: Line insertion TECHNIQUE: Single frontal view of the chest is obtained. FINDINGS: The heart size is normal. The pulmonary vasculature is normal. The lungs are clear. No pneumothorax is evident. A port is placed on the left with the tip in the proximal right atrium. IMPRESSION: 1. No pneumothorax post line placement, tip in the proximal right atrium
[2021-03-17 10:50] VITALS: BP 121/79; PULSE 71
== END 2021-03-17 11:12 | disposition home or self-care (01) ==
LOC: OR 07:28
PROVIDERS: ATTEND Surgery
DX: C85.18 Unspecified B-cell lymphoma, lymph nodes of multiple sites (principal); M19.90 Unspecified osteoarthritis, unspecified site; J44.9 Chronic obstructive pulmonary disease, unspecified; Z85.850 Personal history of malignant neoplasm of thyroid; E89.0 Postprocedural hypothyroidism; Y83.8 Other surgical procedures as the cause of abnormal reaction of the patient, or of later complication, without mention of misadventure at the time of the procedure; Z79.899 Other long term (current) drug therapy; Z80.0 Family history of malignant neoplasm of digestive organs; Z80.3 Family history of malignant neoplasm of breast; E78.5 Hyperlipidemia, unspecified; F41.9 Anxiety disorder, unspecified; F32.9 Major depressive disorder, single episode, unspecified; K21.9 Gastro-esophageal reflux disease without esophagitis
CPT/HCPCS: 77001; 71045; 36561; C1788; J2250; J1642; J1100; J2405; J2001; J3010; J2704; J1644

== ENCOUNTER → 2021-04-07 | Outpatient (CLI) | payer OTHER ==
--- NOTE | 2021-04-08 09:59 | MR ---
EXAMINATION TYPE: MR lumbar spine wo/w con DATE OF EXAM: 04/07/2021 COMPARISON: Prior PET/CT March 03, 2021 HISTORY: History of thyroid cancer and large B-cell lymphoma presents with low back pain for several years into right buttocks for 1 month. TECHNIQUE: Multiplanar, multisequence images of the lumbar spine is performed without and with IV contrast, util izing 9 mL intravenous Gadavist FINDINGS: Sagittal images of the lumbar spine show vertebral body heights and alignment to appear sat isfactory. Disc desiccation L3-L4 and L4-L5 levels. Mild disc space narrowing L3-L4 level. The conus medullaris is normal in position and signal ending at L1-L2 disc space level. Several Tarlov cysts a nd prominent neural sheath in the sacrum are seen on sagittal images. The bone marrow signal intensit y is within normal limits. No suspicious postcontrast enhancement. Axial images show T12-L1, L1-L2, and L2-L3 levels all to appear within normal limits. Axial images at the L3-L4 level shows mild broad disc bulge minimally effacing anterior thecal sac an d mild facet arthropathy bilaterally. Patent bilateral neural foramina. Axial images at the L4-L5 level show [id number] facet degenerative changes and ligamentum flavu m hypertrophy effacing posterior lateral thecal sac right greater than left. There is mild broad disc bulge mildly effacing anterior thecal sac. There is mild bilateral anterior inferior neural foramina l narrowing. Axial images at the L5-S1 level show mild facet arthropathy bilaterally. Spinal canal is preserved. T he bilateral neural foramina. IMPRESSION: Mild degenerative changes in the lower lumbar levels as detailed above. No large disc her niation to account for radiculopathy type symptoms. No suspicious osseous lesions or enhancement note d.
== END | disposition home or self-care (01) ==
LOC: RADMRIMAIN 20:32
PROVIDERS: ATTEND Internal Medicine Hematology & Oncology
DX: M51.26 Other intervertebral disc displacement, lumbar region (principal); M51.36 Other intervertebral disc degeneration, lumbar region; M47.816 Spondylosis without myelopathy or radiculopathy, lumbar region; M99.73 Connective tissue and disc stenosis of intervertebral foramina of lumbar region
CPT/HCPCS: 72158; A9585

== ENCOUNTER → 2021-05-19 | Outpatient (CLI) | payer OTHER ==
--- NOTE | 2021-05-22 07:45 | PE ---
EXAMINATION TYPE: PET CT fusion skull to thigh DATE OF EXAM: 05/19/2021 COMPARISON: Prior PET/CT March 03, 2021 and older studies HISTORY: Lymphoma progress study. Completed chemotherapy May 04. TECHNIQUE: Following the intravenous administration of 15.19 mCi of F-18 FDG, whole body images are performed from the skull base to the midthigh. Images are reviewed on the computer in the coronal, a xial, and sagittal planes. Reconstructed rotating images are created on independent workstation and reviewed on the computer. A localization and attenuation correction CT is performed in conjunction with the PET scan. Blood glucose level equals 106 SCAN: Subsequent Scan FINDINGS: Average Mediastinum SUV: 1.13 Average Liver SUV: 2.2 SKULL BASE AND NECK: Interval resolution of abnormal hypermetabolic uptake right posterior nasophary nx. Persistent abnormal hypermetabolic uptake in right supraclavicular mass or lymph node near site of mendieta rgical clips axial image 47, max SUV is 5.36 current study versus 2.92 prior study report. New areas of increased hypermetabolic uptake in the left maxilla and mandible axial images 24 and 30 respectively. Developing posterior left maxillary sinus opacity is ametabolic. CHEST, MEDIASTINUM, AND HILAR REGION: No new areas of abnormal hypermetabolic uptake. ABDOMEN AND PELVIS: No new suspicious hepatic or splenic uptake. Mild nonspecific uptake in pelvic sahra wel loops. Marked improvement in abnormal hypermetabolic enlarged bilateral groin lymph nodes. Some r esidual enlarged lymph nodes are decreased in size from prior CT and currently ametabolic. For refere nce anterior medial left groin lymph node axial image 224 measures 3.0 x 1.6 cm current study versus 6.1 x 2.8 cm prior study. OSSEOUS STRUCTURES: Mild diffuse osseous uptake now present presumed posttreatment response. OTHER CT: Extensive surgical change to the right neck is redemonstrated. There is new left internal j ugular Mediport catheter terminating in SVC. Overlying bilateral breast implants redemonstrated. Ecta tic 3.9 cm ascending aorta redemonstrated. Coronary artery calcification again seen. Mild underlying emphysematous change redemonstrated. IMPRESSION: Overall mixed treatment response. Resolved abnormal hypermetabolic uptake in the bilatera l groin adenopathy but there is increased hypermetabolic uptake right supraclavicular region at site of prior extensive surgical change. New areas of hypermetabolic uptake left maxilla and mandible of u ncertain etiology or significance. No new hypermetabolic adenopathy identified.
== END | disposition home or self-care (01) ==
LOC: RADPETMAIN 14:21
PROVIDERS: ATTEND Internal Medicine Hematology & Oncology
DX: C83.38 Diffuse large B-cell lymphoma, lymph nodes of multiple sites (principal)
CPT/HCPCS: 78815; A9552

== ENCOUNTER → 2021-08-12 | Outpatient (CLI) | payer OTHER ==
--- NOTE | 2021-08-13 08:02 | MR ---
EXAMINATION TYPE: MR pelvis wo/w con DATE OF EXAM: 08/12/2021 COMPARISON: Prior PET/CT May 19, 2021 HISTORY: Lymphoma, pelvic pain, low back pain. CONTRAST: Standard multiplanar, multisequence MRI departmental protocol images were obtained without contrast a nd with 10 mL intravenous Gadavist gadolinium contrast. Imaging performed of the pelvis. FINDINGS: Persistent cluster prominent medial right groin lymph nodes measuring up to 1.4 x 1.1 cm ax ial image 17 not significantly changed in size from most recent PET/CT. Similar findings in the media l left groin with largest lymph node measuring 2.6 x 1.4 cm axial image 18 not significantly changed in size from most recent PET/CT CT axial image 224. There is additional stable 2.2 x 1.7 cm more infe rior left groin lymph node axial image 11 redemonstrated. No definitive new or enlarging adenopathy. Pelvic muscle bulk is maintained. No groin hernia. Urinary bladder not greatly distended. Retroflexed uterus redemonstrated. No suspicious bowel dilatat ion. No pelvic ascites. No new pelvic adenopathy. There is new diminished T1 and increased T2 signal consistent with enhancement through the right aspe ct of the sacrum abutting the sacroiliac joint seen best on coronal images. Central area for of low T 1 signal is noted focal reference series 1001 image 23 and series 501 image 34. There is new mild edema at the level of the right issue tuberosity extending into the adjacent muscle s. Correlate for strain injury. IMPRESSION: 1. Acute or subacute nondisplaced right sacral fracture with surrounding osseous edema may reflect in sufficiency fracture is new from recent PET/CT. Suspect additional strain injury of the proximal righ t hamstring muscles. 2. Stable bilateral groin adenopathy from known treated lymphoma.
== END | disposition home or self-care (01) ==
LOC: RADMRIMAIN 12:00
PROVIDERS: ATTEND Internal Medicine Hematology & Oncology
DX: C83.38 Diffuse large B-cell lymphoma, lymph nodes of multiple sites (principal); M84.58XA Pathological fracture in neoplastic disease, other specified site, initial encounter for fracture
CPT/HCPCS: 72197; A9585

== ENCOUNTER → 2021-11-10 | Outpatient (CLI) | payer OTHER ==
--- NOTE | 2021-11-15 06:27 | PE ---
EXAMINATION TYPE: PET CT fusion skull to thigh DATE OF EXAM: 11/10/2021 COMPARISON: Prior PET/CT May 19, 2021 and older studies HISTORY: Lymphoma progress study diagnosed 2020. Completed chemotherapy May 15, 2021. Completed r adiation treatment in August in the pelvis. History of 2016 thyroid cancer. TECHNIQUE: Following the intravenous administration of 9.38 mCi of F-18 FDG, whole body images are p erformed from the skull base to the midthigh. Images are reviewed on the computer in the coronal, ax ial, and sagittal planes. Reconstructed rotating images are created on independent workstation and r eviewed on the computer. A localization and attenuation correction CT is performed in conjunction w ith the PET scan. Blood glucose level equals 88. SCAN: Subsequent Scan FINDINGS: MEAN SUV MEDIASTINUM: 0.86 MEAN SUV LIVER: 1.96 SKULL BASE AND NECK: Persistent abnormal hypermetabolic uptake in right supraclavicular mass or lymph node near site of surgical clips axial image 42, max SUV is 3.45 current study versus 5.32 prior tammy dy. No new areas of abnormal hypermetabolic uptake. CHEST, MEDIASTINUM, AND HILAR REGION: No new areas of abnormal hypermetabolic uptake. ABDOMEN AND PELVIS: No new suspicious hepatic or splenic uptake. No new areas of abnormal hypermetabo lic uptake. OSSEOUS STRUCTURES: Focal mild hypermetabolic uptake right sacral axial image 186 with some sclerosis . The max SUV is 3.24. OTHER CT: Extensive surgical change to the right neck is redemonstrated. There is stable left interna l jugular Mediport catheter. Overlying bilateral breast implants redemonstrated. Ectatic 3.9 cm ascen ding aorta redemonstrated. Mild Coronary artery calcification redemonstrated. Mild/moderate underlyin g emphysematous change redemonstrated. IMPRESSION: Positive treatment response. Nonspecific right sacral lesion could reflect neoplastic inv olvement versus healing insufficiency fracture. Correlate clinically.
== END | disposition home or self-care (01) ==
LOC: RADXRMAIN 10:04
PROVIDERS: ATTEND Internal Medicine Hematology & Oncology
DX: C83.38 Diffuse large B-cell lymphoma, lymph nodes of multiple sites (principal)
CPT/HCPCS: 78815; A9552

== ENCOUNTER → 2021-11-24 | Outpatient (CLI) | payer OTHER ==
--- NOTE | 2021-11-24 14:05 | CT ---
EXAMINATION TYPE: CT soft tissue neck w con CT DLP: 870 mGycm, Automated exposure control for dose reduction was used. DATE OF EXAM: 11/24/2021 1:53 PM COMPARISON: Multiple PET most recent 11/10/2021. CLINICAL INDICATION:Female, 51 years old with history of C73 THYROID CANCER, thyroid CA TECHNIQUE: Standard enhanced CT of the neck following intravenous administration of 70 cc of Isovue 3 00. Axial sections with coronal and sagittal reformats were obtained. FINDINGS: Brain: Visualized portions are grossly unremarkable. Orbits: Unremarkable Sinuses: Grossly unremarkable. Spaces of the neck: There remains a 13 mm asymmetric increased density within the right sternocleidom astoid muscle. This did demonstrate FDG activity on prior PETs. Postsurgical changes to the right nec k. The thyroid gland is surgically absent. Musculoskeletal: No acute osseous pathology. Degenerative disc disease changes of the visualized spin e are present. Lymph nodes: Multiple nonenlarged lymph nodes are seen along both anterior chains of the neck. Vascular structures: Visualized major arteries are patent without evidence of aneurysm. Thoracic Inlet/airway: Airway is patent. Centrilobular emphysema changes are seen within the lung api josue. Moderate coronary artery atherosclerosis partially visualized Soft tissues/Thyroid: Thyroid and remainder of the soft tissues are unremarkable. Bilateral breast im plants appear intact. Left chest wall [id number] with distal tip projecting out of the field-of-vi ew near the superior cavoatrial junction. IMPRESSION Right sternocleidomastoid muscle abnormality measuring 13 mm correlating with prior PET scans of FDG avid metastatic disease. No evidence of enlarged lymph node.
== END | disposition home or self-care (01) ==
LOC: RADCTMAIN 13:21
PROVIDERS: ATTEND Otolaryngology
DX: C73 Malignant neoplasm of thyroid gland (principal)
CPT/HCPCS: 70491; Q9967

== ENCOUNTER → 2023-07-05 | Outpatient (CLI) | payer OTHER ==
--- NOTE | 2023-07-07 10:07 | PE ---
EXAMINATION TYPE: PET CT fusion skull to thigh DATE OF EXAM: 07/05/2023 CLINICAL INDICATION:Female, 53 years old with history of C83.38 Lymphoma; TECHNIQUE: Following the intravenous administration of 9.9 mCi of F-18 FDG, whole body images are p erformed from the skull base to the midthigh. Images are reviewed on the computer in the coronal, ax ial, and sagittal planes. Reconstructed rotating images are created on independent workstation and r eviewed on the computer. A non-contrast CT is performed in conjunction with the PET scan. Glucose l evel 99 mg/dL CT DLP: 540 mGycm, Automated exposure control for dose reduction was used. COMPARISON: CT 11/24/2021, PET/CT 11/10/2021, FINDINGS: Mediastinal SUV mean is 2.3. Hepatic parenchyma SUV mean is 2.4. SKULL BASE AND NECK: New focal uptake within the right neck lymph node max SUV 8.1 previously 3.5 is within a lymph node m easuring 13 mm., CHEST, MEDIASTINUM, AND HILAR REGION: No suspicious radiotracer activity. ABDOMEN AND PELVIS: No suspicious radiotracer activity. MUSCULOSKELETAL STRUCTURES: * No suspicious radiotracer activity. * Continued uptake within the right sacrum max SUV 3.2, 3.2 possibly relating to an insufficiency fr acture changes. * Greater trochanter suspected bursitis bilaterally axis 7.8 on the right and 9.6 on the left. OTHER CT: Surgical changes of the neck on the right.. There is stable left internal jugular Mediport catheter. Overlying bilateral breast implants redemonstrated. Ectatic 3.9 cm ascending aorta redemons trated. Mild Coronary artery calcification redemonstrated. Mild/moderate underlying emphysematous jonny nge redemonstrated. IMPRESSION: 1. Increasing right neck lymph node metabolic activity concerning for recurrence. 2. Right sacrum mild uptake is unchanged and likely representing post fracture changes.
== END | disposition home or self-care (01) ==
LOC: RADPETMAIN 08:02
PROVIDERS: ATTEND Internal Medicine Hematology & Oncology
DX: C83.38 Diffuse large B-cell lymphoma, lymph nodes of multiple sites (principal); R59.0 Localized enlarged lymph nodes
CPT/HCPCS: 78815; A9552